=== PATIENT | male | born 1965 | race African-American/Black ===

== ENCOUNTER 2017-06-02 11:18 | Inpatient (IN) | payer OTHER ==
[2017-06-02 13:36] VITALS: BMI 37.8
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
[2017-06-02] MEDS ORDERED: MENTHOL/PHENOL 1 EACH UD MM PRN (15:55)
[2017-06-02] MEDS ORDERED: MAG HYDROX/AL HYDROX/SIMETH 30 ML UNIT-DOSE CUP PO PRN (15:55)
[2017-06-02] MEDS ORDERED: MAGNESIUM HYDROX 2400MG/30ML ORAL SUSPENSION 30 ML CUP PO PRN (15:55)
[2017-06-02] MEDS ORDERED: LOPERAMIDE HCL 2 MG CAPSULE PO PRN (15:55)
[2017-06-02] MEDS ORDERED: P-EPHED 60MG/TRIPROLIDI 2.5MG TABLET PO PRN (15:55)
[2017-06-02] MEDS ORDERED: IBUPROFEN 400 MG TABLET (FP) PO PRN (15:55)
[2017-06-02] MEDS ORDERED: MAGNESIUM CITRATE 300 ML BOTTLE PO PRN (15:55)
[2017-06-02] MEDS ORDERED: guaiFENesin/D-METHORPHAN HB 10 ML UNIT-DOSE CUPS PO PRN (15:55)
[2017-06-02] MEDS ORDERED: NICOTINE POLACRILEX 2 MG GUM BUC PRN (15:55)
[2017-06-02] MEDS ORDERED: hydrOXYzine PAMOATE 50 MG CAPSULE (FP) PO PRN (15:55)
[2017-06-02] MEDS ORDERED: METHADONE HCL 10 MG TABLET (FOR DETOX USE ONLY) PO ONE ×2 (17:30→23:00)
[2017-06-02] MEDS: diazePAM 5 MG TABLET PO PRN ×2 (18:01→22:16)
[2017-06-02] MEDS: NICOTINE 21 MG/24 HOURS TOPICAL PATCH TD SCH (18:03)
[2017-06-02] MEDS: ALBUTEROL SO4 6.7 GM HFA INHALER IH PRN (20:32)
[2017-06-02] MEDS ORDERED: ALBUTEROL SO4 6.7 GM HFA INHALER IH ONE (20:32)
[2017-06-02 21:54] LABS: URINE APPEARANCE CLEAR; URINE BILIRUBIN NEGATIVE (NEGATIVE); URINE BLOOD NEGATIVE (NEGATIVE); URINE COLOR DKYELLOW; URINE GLUCOSE (UA) NEGATIVE (NEGATIVE); URINE KETONE NEGATIVE (NEGATIVE); URINE LEUK ESTERASE NEGATIVE (NEGATIVE); URINE NITRITE NEGATIVE (NEGATIVE); URINE PROTEIN NEGATIVE (NEGATIVE); URINE UROBILINOGEN NEGATIVE mg/dL (0.2-1.0)
[2017-06-02] MEDS ORDERED: diphenhydrAMINE HCL 50 MG CAPSULE PO PRN (22:00)
[2017-06-02] MEDS: cloNIDine HCL 0.1 MG TABLET PO SCH (22:15)
[2017-06-02] MEDS: THIAMINE HCL 100 MG TABLET (FP) PO SCH (22:15)
[2017-06-03] MEDS: ALBUTEROL SO4 6.7 GM HFA INHALER IH PRN ×2 (02:35→22:39)
[2017-06-03] MEDS: NAPROXEN 500 MG TABLET (FP) PO PRN (05:27)
[2017-06-03] MEDS: diazePAM 5 MG TABLET PO PRN ×2 (05:27→22:37)
[2017-06-03] MEDS ORDERED: METHADONE HCL 10 MG TABLET (FOR DETOX USE ONLY) PO ONE (10:00)
[2017-06-03] MEDS: PRENATAL VITAMINS W/ FOLIC ACID TABLET (FP) PO SCH (10:35)
[2017-06-03] MEDS: HYDROCHLOROTHIAZIDE 12.5 MG CAPSULE (FP) PO SCH (10:35)
[2017-06-03] MEDS: amLODIPine BESYLATE 5 MG TABLET (FP) PO SCH (10:35)
[2017-06-03] MEDS: cloNIDine HCL 0.1 MG TABLET PO SCH ×2 (10:35→22:37)
[2017-06-03] MEDS: NICOTINE 21 MG/24 HOURS TOPICAL PATCH TD SCH (10:40)
[2017-06-03 10:44] LABS: MCH 30.2 pg (25.7-33.7); MCHC 33.4 g/dl (32.0-35.9); MEAN CELL VOLUME 90.3 fl (80-96); MEAN PLT VOLUME 9.6 fl (7.5-11.1); PLATELET COUNT 165 K/MM3 (134-434); RDW 14.7 % (11.9-15.9); WHITE BLOOD COUNT 6.4 K/mm3 (4.0-10.0)
[2017-06-03 10:45] LABS: ALBUMIN 3.1 g/dl (3.4-5.0); ANION GAP 3 (8-16); CALCIUM 8.4 mg/dL (8.5-10.1); CO2 36 mmol/L (21-32); GLUCOSE,RANDOM 93 mg/dL (74-106); SGPT/ALT 55 U/L (12-78)
[2017-06-03 10:47] LABS: ALK PHOS 82 U/L (45-117); BILIRUBIN,TOTAL 0.6 mg/dL (0.2-1.0); CREATININE 0.7 mg/dL (0.7-1.3); SGOT/AST 49 U/L (15-37); TOT PROT 6.3 g/dl (6.4-8.2)
--- NOTE | 2017-06-03 16:06 | PN ---
S CIWA - CIWA Score Nausea/Vomitin Muscle Tremors: 3 Anxiety: 4-Mod. Anxious/Guarded Agitation: 2 Paroxysmal Sweats: 1-Minimal Palms Moist Orientation: 0-Oriented Tacttile Disturbances: 0-None Auditory Disturbances: 0-None Visual Disturbances: 3-Moderate Sensitivity Headache: 4-Moderately Severe CIWA-Ar Total Score: 19 BHS COWS - Scale Resting Pulse: 0= [place] 80 or Below Sweatin= Chills/Flushing Restless Observation: 1= Difficult to Sit Still Pupil Size: 0= Normal to Room Light Bone or Joint Aches: 2= Severe Diffuse Aches Runny Nose/ Eye Tearin= Runny Nose/Eyes GI Upset > 30mins: 1= Stomach Cramp Tremor Observation of Outstretched Hands: 2= Slight Tremor Visible Yawning Observation: 1= 1-2x During Session Anxiety or Irritability: 2=Irritable/Anxious Goose Flesh Skin: 3=Piloerection COWS Score: 15 S Progress Note (SOAP) Subjective: Stomach Cramping, Tremors, H/A, Interrupted Sleep, Body Aches. Objective: PT. A & O X 3. NO ACUTE DISTRESS. 06/03/17 16:05 Vital Signs Temperature 97.8 F 06/03/17 13:47 Pulse Rate 74 06/03/17 13:47 Respiratory Rate 20 06/03/17 13:47 Blood Pressure 113/79 06/03/17 13:47 O2 Sat by Pulse Oximetry (%) Laboratory Tests 06/02/17 06/03/17 06/03/17 21:00 08:00 08:00 WBC 6.4 RBC 4.56 Hgb 13.8 Hct 41.2 MCV 90.3 MCH 30.2 MCHC 33.4 RDW 14.7 Plt Count 165 MPV 9.6 Sodium 140 Potassium 4.0 Chloride 101 Carbon Dioxide 36 H Anion Gap 3 L BUN 10 Creatinine 0.7 Creat Clearance w eGFR > 60 Random Glucose 93 Calcium 8.4 L Total Bilirubin 0.6 AST 49 H ALT 55 Alkaline Phosphatase 82 Total Protein 6.3 L Albumin 3.1 L Urine Color Dkyellow Urine Appearance Clear Urine pH 6.0 Ur Specific [place] 1.020 Urine Protein Negative Urine Glucose (UA) Negative Urine Ketones Negative Urine Blood Negative Urine Nitrite Negative Urine Bilirubin Negative Urine Urobilinogen Negative Ur Leukocyte Esterase Negative RPR Titer 06/03/17 08:00 WBC RBC Hgb Hct MCV MCH MCHC RDW Plt Count MPV Sodium Potassium Chloride Carbon Dioxide Anion Gap BUN Creatinine Creat Clearance w eGFR Random Glucose Calcium Total Bilirubin AST ALT Alkaline Phosphatase Total Protein Albumin Urine Color Urine Appearance Urine pH Ur Specific [place] Urine Protein Urine Glucose (UA) Urine Ketones Urine Blood Urine Nitrite Urine Bilirubin Urine Urobilinogen Ur Leukocyte Esterase RPR Titer Nonreactive labs noted. Assessment: 06/03/17 16:05 WITHDRAWAL SYMPTOMS. Plan: CONTINUE DETOX.
[2017-06-03] MEDS: THIAMINE HCL 100 MG TABLET (FP) PO SCH (22:37)
[2017-06-03] MEDS: CYCLOBENZAPRINE HCL 10 MG TABLET (FP) PO PRN (22:37)
[2017-06-04] MEDS: ALBUTEROL SO4 6.7 GM HFA INHALER IH PRN (05:29)
[2017-06-04] MEDS: diazePAM 5 MG TABLET PO PRN ×2 (05:29→22:23)
[2017-06-04] MEDS: NAPROXEN 500 MG TABLET (FP) PO PRN ×2 (05:31→22:22)
[2017-06-04] MEDS ORDERED: METHADONE HCL 5 MG TABLET (FOR DETOX USE ONLY) PO ONE (10:00)
[2017-06-04] MEDS: PRENATAL VITAMINS W/ FOLIC ACID TABLET (FP) PO SCH (10:58)
[2017-06-04] MEDS: amLODIPine BESYLATE 5 MG TABLET (FP) PO SCH (10:59)
[2017-06-04] MEDS: cloNIDine HCL 0.1 MG TABLET PO SCH ×2 (10:59→22:22)
[2017-06-04] MEDS: HYDROCHLOROTHIAZIDE 12.5 MG CAPSULE (FP) PO SCH (10:59)
[2017-06-04] MEDS: NICOTINE 21 MG/24 HOURS TOPICAL PATCH TD SCH (11:00)
[2017-06-04] MEDS: CYCLOBENZAPRINE HCL 10 MG TABLET (FP) PO PRN ×2 (13:49→22:22)
--- NOTE | 2017-06-04 14:49 | PN ---
BHS COWS - Scale Resting Pulse: 0= [place] 80 or Below Sweatin= Chills/Flushing Restless Observation: 3= Extraneous Movement Pupil Size: 1= Pupils >than Normal Bone or Joint Aches: 2= Severe Diffuse Aches Runny Nose/ Eye Tearin= Runny Nose/Eyes GI Upset > 30mins: 1= Stomach Cramp Tremor Observation of Outstretched Hands: 2= Slight Tremor Visible Yawning Observation: 1= 1-2x During Session Anxiety or Irritability: 2=Irritable/Anxious Goose Flesh Skin: 0=Smooth Skin COWS Score: 15 S Progress Note (SOAP) Subjective: Sweating, anxious, chills, interrupted sleep Objective: 06/04/17 14:47 Last Vital Signs Temp Pulse Resp BP Pulse Ox 97.2 F L 67 18 106/75 06/04/17 13:45 06/04/17 13:45 06/04/17 13:45 06/04/17 13:45 Laboratory Tests 06/02/17 06/03/17 06/03/17 21:00 08:00 08:00 WBC 6.4 RBC 4.56 Hgb 13.8 Hct 41.2 MCV 90.3 MCH 30.2 MCHC 33.4 RDW 14.7 Plt Count 165 MPV 9.6 Sodium 140 Potassium 4.0 Chloride 101 Carbon Dioxide 36 H Anion Gap 3 L BUN 10 Creatinine 0.7 Creat Clearance w eGFR > 60 Random Glucose 93 Calcium 8.4 L Total Bilirubin 0.6 AST 49 H ALT 55 Alkaline Phosphatase 82 Total Protein 6.3 L Albumin 3.1 L Urine Color Dkyellow Urine Appearance Clear Urine pH 6.0 Ur Specific [place] 1.020 Urine Protein Negative Urine Glucose (UA) Negative Urine Ketones Negative Urine Blood Negative Urine Nitrite Negative Urine Bilirubin Negative Urine Urobilinogen Negative Ur Leukocyte Esterase Negative RPR Titer 06/03/17 08:00 WBC RBC Hgb Hct MCV MCH MCHC RDW Plt Count MPV Sodium Potassium Chloride Carbon Dioxide Anion Gap BUN Creatinine Creat Clearance w eGFR Random Glucose Calcium Total Bilirubin AST ALT Alkaline Phosphatase Total Protein Albumin Urine Color Urine Appearance Urine pH Ur Specific [place] Urine Protein Urine Glucose (UA) Urine Ketones Urine Blood Urine Nitrite Urine Bilirubin Urine Urobilinogen Ur Leukocyte Esterase RPR Titer Nonreactive Labs noted Assessment: 06/04/17 14:48 Withdrawal symptoms Plan: Continue detox Encouraged to drink lots of water
[2017-06-04] MEDS: THIAMINE HCL 100 MG TABLET (FP) PO SCH (22:20)
[2017-06-05] MEDS: ALBUTEROL SO4 6.7 GM HFA INHALER IH PRN (05:35)
[2017-06-05] MEDS: diazePAM 5 MG TABLET PO PRN ×2 (05:35→10:44)
[2017-06-05] MEDS ORDERED: METHADONE HCL 5 MG TABLET (FOR DETOX USE ONLY) PO ONE (10:00)
--- NOTE | 2017-06-05 10:00 | EKG ---
Test Reason : Blood Pressure : / mmHG Vent. Rate : 072 BPM Atrial Rate : 072 BPM P-R Int : 140 ms QRS Dur : 078 ms QT Int : 396 ms P-R-T Axes : 071 069 054 degrees QTc Int : 433 ms NORMAL SINUS RHYTHM NORMAL ECG NO PREVIOUS ECGS AVAILABLE Confirmed by FREDDIE MARQUEZ MD ([id number]) on 06/05/2017 9:59:37 AM Referred By: Confirmed By:FREDDIE MARQUEZ MD
[2017-06-05] MEDS: cloNIDine HCL 0.1 MG TABLET PO SCH ×2 (10:40→22:16)
[2017-06-05] MEDS: PRENATAL VITAMINS W/ FOLIC ACID TABLET (FP) PO SCH (10:40)
[2017-06-05] MEDS: HYDROCHLOROTHIAZIDE 12.5 MG CAPSULE (FP) PO SCH (10:44)
[2017-06-05] MEDS: NICOTINE 21 MG/24 HOURS TOPICAL PATCH TD SCH (10:44)
[2017-06-05] MEDS: amLODIPine BESYLATE 5 MG TABLET (FP) PO SCH (10:44)
--- NOTE | 2017-06-05 14:33 | PN ---
BHS Progress Note (SOAP) Subjective: Sweating,interrupted sleep,restless. Objective: 06/05/17 14:32 Vital Signs - 8 hr 06/05/17 06/05/17 09:25 13:24 Temperature 97.0 F L 97.1 F L Pulse Rate 82 69 Respiratory 20 18 Rate Blood Pressure 115/75 104/77 Laboratory Last Values WBC 6.4 K/mm3 (4.0-10.0) 06/03/17 08:00 RBC 4.56 M/mm3 (4.00-5.60) 06/03/17 08:00 Hgb 13.8 GM/dL (11.7-16.9) 06/03/17 08:00 Hct 41.2 % (35.4-49) 06/03/17 08:00 MCV 90.3 fl (80-96) 06/03/17 08:00 MCH 30.2 pg (25.7-33.7) 06/03/17 08:00 MCHC 33.4 g/dl (32.0-35.9) 06/03/17 08:00 RDW 14.7 % (11.9-15.9) 06/03/17 08:00 Plt Count 165 K/MM3 (134-434) 06/03/17 08:00 MPV 9.6 fl (7.5-11.1) 06/03/17 08:00 Sodium 140 mmol/L (136-145) 06/03/17 08:00 Potassium 4.0 mmol/L (3.5-5.1) 06/03/17 08:00 Chloride 101 mmol/L (98-107) 06/03/17 08:00 Carbon Dioxide 36 mmol/L (21-32) H 06/03/17 08:00 Anion Gap 3 (8-16) L 06/03/17 08:00 BUN 10 mg/dL (7-18) 06/03/17 08:00 Creatinine 0.7 mg/dL (0.7-1.3) 06/03/17 08:00 Creat Clearance w eGFR > 60 (>60) 06/03/17 08:00 Random Glucose 93 mg/dL (74-106) 06/03/17 08:00 Calcium 8.4 mg/dL (8.5-10.1) L 06/03/17 08:00 Total Bilirubin 0.6 mg/dL (0.2-1.0) 06/03/17 08:00 AST 49 U/L (15-37) H 06/03/17 08:00 ALT 55 U/L (12-78) 06/03/17 08:00 Alkaline Phosphatase 82 U/L (45-117) 06/03/17 08:00 Total Protein 6.3 g/dl (6.4-8.2) L 06/03/17 08:00 Albumin 3.1 g/dl (3.4-5.0) L 06/03/17 08:00 Urine Color Dkyellow 06/02/17 21:00 Urine Appearance Clear 06/02/17 21:00 Urine pH 6.0 (5.0-8.0) 06/02/17 21:00 Ur Specific [place] 1.020 (1.005-1.025) 06/02/17 21:00 Urine Protein Negative (NEGATIVE) 06/02/17 21:00 Urine Glucose (UA) Negative (NEGATIVE) 06/02/17 21:00 Urine Ketones Negative (NEGATIVE) 06/02/17 21:00 Urine Blood Negative (NEGATIVE) 06/02/17 21:00 Urine Nitrite Negative (NEGATIVE) 06/02/17 21:00 Urine Bilirubin Negative (NEGATIVE) 06/02/17 21:00 Urine Urobilinogen Negative mg/dL (0.2-1.0) 06/02/17 21:00 Ur Leukocyte Esterase Negative (NEGATIVE) 06/02/17 21:00 RPR Titer Nonreactive (NONREACTIVE) 06/03/17 08:00 labs noted Assessment: 06/05/17 14:33 Withdrawal sx. Plan: Continue detox
[2017-06-05] MEDS: ACETAMINOPHEN 325 MG TABLET (FP) PO PRN (22:16)
[2017-06-05] MEDS: THIAMINE HCL 100 MG TABLET (FP) PO SCH (22:16)
[2017-06-06] MEDS: ALBUTEROL SO4 6.7 GM HFA INHALER IH PRN ×2 (05:53→09:44)
[2017-06-06] MEDS: amLODIPine BESYLATE 5 MG TABLET (FP) PO SCH (09:44)
[2017-06-06] MEDS: HYDROCHLOROTHIAZIDE 12.5 MG CAPSULE (FP) PO SCH (09:44)
[2017-06-06] MEDS: cloNIDine HCL 0.1 MG TABLET PO SCH (09:44)
[2017-06-06] MEDS: NICOTINE 21 MG/24 HOURS TOPICAL PATCH TD SCH (09:44)
[2017-06-06] MEDS: PRENATAL VITAMINS W/ FOLIC ACID TABLET (FP) PO SCH (09:44)
[2017-06-06 10:00] VITALS: BP 134/80; PULSE 79; TEMP 98.1
[2017-06-06] MEDS ORDERED: METHADONE HCL 10 MG TABLET (FOR DETOX USE ONLY) PO ONE (10:00)
[2017-06-06] MEDS ORDERED: METHADONE HCL 5 MG TABLET (FOR DETOX USE ONLY) PO ONE (10:00)
--- NOTE | 2017-06-06 10:57 | DS ---
[facility] Detox Discharge Summary Admission Date: 06/02/17 Discharge Date: 06/06/17 - History Present History: Opioid Dependence Pertinent Past History: HTN Hep c Asthma - Physical Exam Results Vital Signs: Vital Signs Temperature 98.1 F 06/06/17 09:59 Pulse Rate 79 06/06/17 09:59 Respiratory Rate 18 06/06/17 09:59 Blood Pressure 134/80 06/06/17 09:59 O2 Sat by Pulse Oximetry (%) Pertinent Admission Physical Exam Findings: Withdrawal sx. Laboratory Last Values WBC 6.4 K/mm3 (4.0-10.0) 06/03/17 08:00 RBC 4.56 M/mm3 (4.00-5.60) 06/03/17 08:00 Hgb 13.8 GM/dL (11.7-16.9) 06/03/17 08:00 Hct 41.2 % (35.4-49) 06/03/17 08:00 MCV 90.3 fl (80-96) 06/03/17 08:00 MCH 30.2 pg (25.7-33.7) 06/03/17 08:00 MCHC 33.4 g/dl (32.0-35.9) 06/03/17 08:00 RDW 14.7 % (11.9-15.9) 06/03/17 08:00 Plt Count 165 K/MM3 (134-434) 06/03/17 08:00 MPV 9.6 fl (7.5-11.1) 06/03/17 08:00 Sodium 140 mmol/L (136-145) 06/03/17 08:00 Potassium 4.0 mmol/L (3.5-5.1) 06/03/17 08:00 Chloride 101 mmol/L (98-107) 06/03/17 08:00 Carbon Dioxide 36 mmol/L (21-32) H 06/03/17 08:00 Anion Gap 3 (8-16) L 06/03/17 08:00 BUN 10 mg/dL (7-18) 06/03/17 08:00 Creatinine 0.7 mg/dL (0.7-1.3) 06/03/17 08:00 Creat Clearance w eGFR > 60 (>60) 06/03/17 08:00 Random Glucose 93 mg/dL (74-106) 06/03/17 08:00 Calcium 8.4 mg/dL (8.5-10.1) L 06/03/17 08:00 Total Bilirubin 0.6 mg/dL (0.2-1.0) 06/03/17 08:00 AST 49 U/L (15-37) H 06/03/17 08:00 ALT 55 U/L (12-78) 06/03/17 08:00 Alkaline Phosphatase 82 U/L (45-117) 06/03/17 08:00 Total Protein 6.3 g/dl (6.4-8.2) L 06/03/17 08:00 Albumin 3.1 g/dl (3.4-5.0) L 06/03/17 08:00 Urine Color Dkyellow 06/02/17 21:00 Urine Appearance Clear 06/02/17 21:00 Urine pH 6.0 (5.0-8.0) 06/02/17 21:00 Ur Specific [place] 1.020 (1.005-1.025) 06/02/17 21:00 Urine Protein Negative (NEGATIVE) 06/02/17 21:00 Urine Glucose (UA) Negative (NEGATIVE) 06/02/17 21:00 Urine Ketones Negative (NEGATIVE) 06/02/17 21:00 Urine Blood Negative (NEGATIVE) 06/02/17 21:00 Urine Nitrite Negative (NEGATIVE) 06/02/17 21:00 Urine Bilirubin Negative (NEGATIVE) 06/02/17 21:00 Urine Urobilinogen Negative mg/dL (0.2-1.0) 06/02/17 21:00 Ur Leukocyte Esterase Negative (NEGATIVE) 06/02/17 21:00 RPR Titer Nonreactive (NONREACTIVE) 06/03/17 08:00 labs noted - Treatment Hospital Course: Detox Protocol Followed, Detoxed Safely, Responded well, Discharged Condition Good, Rehab Referral Accepted Patient has Accepted a Rehab Referral to: [facility] - Medication Discharge Medications: Ambulatory Orders Albuterol Sulfate Inhaler - [Ventolin Hfa Inhaler -] 2 inh PO Q4H PRN 06/02/17 Amlodipine Besylate [Norvasc -] 5 mg PO DAILY 06/02/17 Benzonatate [Tessalon Pearls -] 100 mg PO TID 06/02/17 Hydrochlorothiazide [Hctz -] 12.5 mg PO DAILY 06/02/17 Naproxen [Naprosyn -] 500 mg PO BID 06/02/17 Prednisone [Deltasone -] 40 mg PO DAILY 06/02/17 - Diagnosis (1) Asthma Current Visit: Yes Status: Acute Qualifiers: Asthma severity: mild intermittent Asthma complication type: uncomplicated Qualified Code(s): J45.20 - Mild intermittent asthma, uncomplicated (2) Essential hypertension Current Visit: Yes Status: Acute (3) Hepatitis C Current Visit: Yes Status: Acute Qualifiers: Viral hepatitis chronicity: unspecified Hepatic coma status: without hepatic coma Qualified Code(s): B19.20 - Unspecified viral hepatitis C without hepatic coma (4) Nicotine dependence Current Visit: Yes Status: Acute Qualifiers: Nicotine product type: cigarettes Substance use status: uncomplicated Qualified Code(s): F17.210 - Nicotine dependence, cigarettes, uncomplicated (5) Opioid dependence with withdrawal Current Visit: Yes Status: Acute - AMA Did Patient Leave Against Medical Advice: No
[2017-06-06] MEDS: ACETAMINOPHEN 325 MG TABLET (FP) PO PRN (11:35)
[2017-06-07] MEDS ORDERED: METHADONE HCL 5 MG TABLET (FOR DETOX USE ONLY) PO ONE (06:00)
== END 2017-06-06 12:23 | disposition other institution (70) | DRG 773 ==
LOC: YASAS 11:18 → Y3N 16:30
PROVIDERS: ADMIT Internal Medicine; ATTEND Internal Medicine
PROC: HZ2ZZZZ Detoxification Services for Substance Abuse Treatment (ICD-10-PCS; principal; 2017-06-06)
DX: F11.23 Opioid dependence with withdrawal (principal); F17.210 Nicotine dependence, cigarettes, uncomplicated; I10 Essential (primary) hypertension; B18.2 Chronic viral hepatitis C; J45.20 Mild intermittent asthma, uncomplicated; M54.5 Low back pain; M12.9 Arthropathy, unspecified
CPT/HCPCS: 36415; 80053; 81003; 85027; 86593; 93005; 93010

== ENCOUNTER 2017-06-06 12:46 | Inpatient (IN) | payer OTHER ==
[2017-06-06] MEDS ORDERED: MAGNESIUM HYDROX 2400MG/30ML ORAL SUSPENSION 30 ML CUP PO PRN (13:06)
[2017-06-06] MEDS ORDERED: MAG HYDROX/AL HYDROX/SIMETH 30 ML UNIT-DOSE CUP PO PRN (13:06)
[2017-06-06] MEDS ORDERED: LOPERAMIDE HCL 2 MG CAPSULE PO PRN (13:06)
[2017-06-06] MEDS ORDERED: hydrOXYzine PAMOATE 50 MG CAPSULE (FP) PO PRN (13:06)
[2017-06-06] MEDS ORDERED: guaiFENesin/D-METHORPHAN HB 10 ML UNIT-DOSE CUPS PO PRN (13:06)
[2017-06-06] MEDS ORDERED: IBUPROFEN 400 MG TABLET (FP) PO PRN (13:06)
[2017-06-06] MEDS ORDERED: P-EPHED 60MG/TRIPROLIDI 2.5MG TABLET PO PRN (13:06)
[2017-06-06] MEDS ORDERED: MENTHOL/PHENOL 1 EACH UD MM PRN (13:06)
[2017-06-06] MEDS ORDERED: ACETAMINOPHEN 325 MG TABLET (FP) PO PRN (13:06)
[2017-06-06] MEDS ORDERED: MAGNESIUM CITRATE 300 ML BOTTLE PO PRN (13:06)
[2017-06-06] MEDS: FLUTICASONE PROP 0.05% 16 GM NASAL SPRAY NS SCH ×2 (14:29→22:00)
[2017-06-06] MEDS: NAPROXEN 500 MG TABLET (FP) PO SCH (22:01)
[2017-06-06] MEDS: THIAMINE HCL 100 MG TABLET (FP) PO SCH (22:01)
[2017-06-06] MEDS: ALBUTEROL SO4 6.7 GM HFA INHALER IH PRN (22:02)
[2017-06-07] MEDS: ALBUTEROL SO4 6.7 GM HFA INHALER IH PRN ×2 (07:20→21:56)
[2017-06-07] MEDS: PRENATAL VITAMINS W/ FOLIC ACID TABLET (FP) PO SCH (10:22)
[2017-06-07] MEDS: amLODIPine BESYLATE 5 MG TABLET (FP) PO SCH (10:22)
[2017-06-07] MEDS: HYDROCHLOROTHIAZIDE 12.5 MG CAPSULE (FP) PO SCH (10:22)
[2017-06-07] MEDS: NAPROXEN 500 MG TABLET (FP) PO SCH ×2 (10:23→21:56)
[2017-06-07] MEDS: FLUTICASONE PROP 0.05% 16 GM NASAL SPRAY NS SCH ×2 (10:23→21:56)
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
[2017-06-07] MEDS: NICOTINE 14 MG/24 HOURS TOPICAL PATCH TD SCH (12:07)
[2017-06-07] MEDS: THIAMINE HCL 100 MG TABLET (FP) PO SCH (21:55)
[2017-06-07] MEDS: diphenhydrAMINE HCL 50 MG CAPSULE PO PRN (21:55)
[2017-06-08] MEDS: PRENATAL VITAMINS W/ FOLIC ACID TABLET (FP) PO SCH (10:31)
[2017-06-08] MEDS: amLODIPine BESYLATE 5 MG TABLET (FP) PO SCH (10:31)
[2017-06-08] MEDS: HYDROCHLOROTHIAZIDE 12.5 MG CAPSULE (FP) PO SCH (10:31)
[2017-06-08] MEDS: NAPROXEN 500 MG TABLET (FP) PO SCH ×2 (10:31→21:52)
[2017-06-08] MEDS: NICOTINE 14 MG/24 HOURS TOPICAL PATCH TD SCH (10:32)
[2017-06-08] MEDS: FLUTICASONE PROP 0.05% 16 GM NASAL SPRAY NS SCH ×2 (10:32→21:52)
[2017-06-08] MEDS: THIAMINE HCL 100 MG TABLET (FP) PO SCH (21:52)
[2017-06-08] MEDS: ALBUTEROL SO4 6.7 GM HFA INHALER IH PRN (21:54)
[2017-06-09] MEDS: HYDROCHLOROTHIAZIDE 12.5 MG CAPSULE (FP) PO SCH (10:12)
[2017-06-09] MEDS: amLODIPine BESYLATE 5 MG TABLET (FP) PO SCH (10:13)
[2017-06-09] MEDS: NICOTINE 14 MG/24 HOURS TOPICAL PATCH TD SCH (10:13)
[2017-06-09] MEDS: FLUTICASONE PROP 0.05% 16 GM NASAL SPRAY NS SCH ×2 (10:13→22:02)
[2017-06-09] MEDS: PRENATAL VITAMINS W/ FOLIC ACID TABLET (FP) PO SCH (10:13)
[2017-06-09] MEDS: NAPROXEN 500 MG TABLET (FP) PO SCH ×2 (10:13→22:01)
[2017-06-09] MEDS ORDERED: MAGNESIUM CITRATE 300 ML BOTTLE PO PRN (13:05)
[2017-06-09] MEDS: THIAMINE HCL 100 MG TABLET (FP) PO SCH (22:01)
[2017-06-09] MEDS: ALBUTEROL SO4 6.7 GM HFA INHALER IH PRN (22:03)
[2017-06-10] MEDS: NAPROXEN 500 MG TABLET (FP) PO SCH ×2 (10:24→22:28)
[2017-06-10] MEDS: FLUTICASONE PROP 0.05% 16 GM NASAL SPRAY NS SCH ×2 (10:24→22:30)
[2017-06-10] MEDS: HYDROCHLOROTHIAZIDE 12.5 MG CAPSULE (FP) PO SCH (10:24)
[2017-06-10] MEDS: amLODIPine BESYLATE 5 MG TABLET (FP) PO SCH (10:24)
[2017-06-10] MEDS: PRENATAL VITAMINS W/ FOLIC ACID TABLET (FP) PO SCH (10:24)
[2017-06-10] MEDS: NICOTINE 14 MG/24 HOURS TOPICAL PATCH TD SCH (10:25)
[2017-06-10] MEDS: ALBUTEROL SO4 6.7 GM HFA INHALER IH PRN (10:27)
[2017-06-10] MEDS: THIAMINE HCL 100 MG TABLET (FP) PO SCH (22:31)
[2017-06-11] MEDS: diphenhydrAMINE HCL 50 MG CAPSULE PO PRN (01:33)
[2017-06-11] MEDS: FLUTICASONE PROP 0.05% 16 GM NASAL SPRAY NS SCH ×2 (10:45→21:56)
[2017-06-11] MEDS: amLODIPine BESYLATE 5 MG TABLET (FP) PO SCH (10:46)
[2017-06-11] MEDS: PRENATAL VITAMINS W/ FOLIC ACID TABLET (FP) PO SCH (10:46)
[2017-06-11] MEDS: HYDROCHLOROTHIAZIDE 12.5 MG CAPSULE (FP) PO SCH (10:46)
[2017-06-11] MEDS: NICOTINE 14 MG/24 HOURS TOPICAL PATCH TD SCH (10:47)
[2017-06-11] MEDS: NAPROXEN 500 MG TABLET (FP) PO SCH ×2 (10:47→21:56)
[2017-06-11] MEDS: ALBUTEROL SO4 6.7 GM HFA INHALER IH PRN (10:47)
[2017-06-11] MEDS: THIAMINE HCL 100 MG TABLET (FP) PO SCH (21:56)
[2017-06-12] MEDS: ALBUTEROL SO4 6.7 GM HFA INHALER IH PRN ×3 (05:00→21:40)
[2017-06-12] MEDS: amLODIPine BESYLATE 5 MG TABLET (FP) PO SCH (10:36)
[2017-06-12] MEDS: PRENATAL VITAMINS W/ FOLIC ACID TABLET (FP) PO SCH (10:36)
[2017-06-12] MEDS: HYDROCHLOROTHIAZIDE 12.5 MG CAPSULE (FP) PO SCH (10:36)
[2017-06-12] MEDS: NICOTINE 14 MG/24 HOURS TOPICAL PATCH TD SCH (10:36)
[2017-06-12] MEDS: FLUTICASONE PROP 0.05% 16 GM NASAL SPRAY NS SCH ×2 (10:36→21:40)
[2017-06-12] MEDS: NAPROXEN 500 MG TABLET (FP) PO SCH ×2 (10:36→21:39)
[2017-06-12] MEDS ORDERED: LIDOCAINE VISCOUS 2% ORAL/TOP 20 ML UNIT-DOSE CUP MM PRN (18:26)
[2017-06-12] MEDS: THIAMINE HCL 100 MG TABLET (FP) PO SCH (21:39)
[2017-06-13 07:05] VITALS: BP 140/84; PULSE 81; TEMP 98.3
[2017-06-13] MEDS: NAPROXEN 500 MG TABLET (FP) PO SCH (10:36)
[2017-06-13] MEDS: NICOTINE 14 MG/24 HOURS TOPICAL PATCH TD SCH (10:36)
[2017-06-13] MEDS: amLODIPine BESYLATE 5 MG TABLET (FP) PO SCH (10:37)
[2017-06-13] MEDS: PRENATAL VITAMINS W/ FOLIC ACID TABLET (FP) PO SCH (10:37)
[2017-06-13] MEDS: HYDROCHLOROTHIAZIDE 12.5 MG CAPSULE (FP) PO SCH (10:37)
[2017-06-13] MEDS: ALBUTEROL SO4 6.7 GM HFA INHALER IH PRN (10:39)
[2017-06-13] MEDS: FLUTICASONE PROP 0.05% 16 GM NASAL SPRAY NS SCH (10:39)
--- NOTE | 2017-06-13 11:21 | PN ---
Psychiatric Progress Note Vital Signs: Vital Signs Period Temp Pulse Resp BP Sys/[place] Pulse Ox Last 24 Hr 98.3 F 81 18-18 140/84 Date of Session: 06/13/17 Chief Complaint:: discharge visit ROS: Asthma, HTN, Hep C, athritis medically managed. Current Medications: Active Medications Generic Name Dose Route Start Last Admin Trade Name Freq PRN Reason Stop Dose Admin Acetaminophen 650 mg 06/06/17 13:06 06/12/17 18:22 Tylenol - PO 650 mg Q4H PRN Administration FEVER OR PAIN Al Hydroxide/Mg Hydroxide 30 ml 06/06/17 13:06 Mylanta Oral Suspension - PO Q6H PRN DYSPEPSIA Albuterol Sulfate 2 puff 06/06/17 13:09 06/13/17 10:39 Ventolin Hfa Inhaler - IH 2 puff Q4H PRN Administration ASTHMA Amlodipine Besylate 5 mg 06/07/17 10:00 06/13/17 10:37 Norvasc - PO 5 mg DAILY HUMA Administration Diphenhydramine HCl 50 mg 06/06/17 13:06 06/11/17 01:33 Benadryl - PO 50 mg HSMR1 PRN Administration FOR ITCHING Eucalyptus/Menthol/Phenol/Sorbitol 1 each 06/06/17 13:06 Cepastat Lozenge - MM Q4H PRN SORE THROAT Fluticasone Propionate 1 spray 06/06/17 14:01 06/13/17 10:39 Flonase - NS 1 spr BID HUMA Administration Guaifenesin 10 ml 06/06/17 13:06 Robitussin Dm - PO Q6H PRN COUGH Hydrochlorothiazide 12.5 mg 06/07/17 10:00 06/13/17 10:37 Hctz - PO 12.5 mg DAILY HUMA Administration Hydroxyzine Pamoate 50 mg 06/06/17 13:06 06/08/17 21:54 Vistaril - PO 50 mg Q4H PRN Administration AGITATION Lidocaine HCl 20 ml 06/12/17 18:26 06/12/17 21:41 Xylocaine 2% Viscous Oral - MM 20 ml TID PRN Administration ORAL PAIN/MOUTH SORES Loperamide HCl 4 mg 06/06/17 13:06 Imodium - PO Q6H PRN DIARRHEA Magnesium Hydroxide 30 ml 06/06/17 13:06 Milk Of Magnesia - PO DAILY PRN CONSTIPATION Naproxen 500 mg 06/06/17 22:00 06/13/17 10:36 Naprosyn - PO Not Given BID HUMA Nicotine 14 mg 06/07/17 11:30 06/13/17 10:36 Nicoderm Patch - TD 14 mg DAILY HUMA Administration Multivit/Folic Acid/Iron 1 tab 06/07/17 10:00 06/13/17 10:37 Vitamins ([facility]) - PO 1 tab DAILY HUMA Administration Pseudoephedrine/Triprolidine 1 combo 06/06/17 13:06 Actifed - PO TID PRN NASAL CONGESTION Thiamine HCl 100 mg 06/06/17 22:00 06/12/17 21:39 Vitamin B1 - PO 100 mg HS HUMA Administration Current Side Effect: No Lab tests ordered: No Lab tests reviewed: Yes Provider note:: Patient requested for earlier discharge today, he completed 8 days, will continue to address his issues at NA meetings, patient verbalized his resolution to continue maintain abstinence and attend NA meettings, he reports he is tired to use drugs, understands the negative outcome of his addiction, patient was encouraged to utlize all supports to prevent relapses, he is stable for discharge today. Total face to face time:: 35 Mental Status Exam - Mental Status Exam Alert and Oriented to: Time, Place, Person Cognitive Function: Good Patient Appearance: Well Groomed Mood: Hopeful Affect: Mood Congruent Patient Behavior: Appropriate, Cooperative Speech Pattern: Clear Voice Loudness: Normal Thought Process: Intact, Goal Oriented Thought Disorder: Not Present Hallucinations: Denies Suicidal Ideation: Denies Homicidal Ideation: Denies Insight/Judgement: Fair Sleep: Fair Appetite: Fair Muscle strength/Tone: Normal Gait/Station: Normal Psychiatric Treatment Plan - Problem List (1) Arthritis Current Visit: No (2) Asthma Current Visit: No Qualifiers: Asthma severity: mild intermittent Asthma complication type: uncomplicated Qualified Code(s): J45.20 - Mild intermittent asthma, uncomplicated (3) Hepatitis C Current Visit: No Qualifiers: Viral hepatitis chronicity: unspecified Hepatic coma status: without hepatic coma Qualified Code(s): B19.20 - Unspecified viral hepatitis C without hepatic coma (4) Hypertension Current Visit: No (5) Nicotine dependence Current Visit: No Qualifiers: Nicotine product type: cigarettes Substance use status: uncomplicated Qualified Code(s): F17.210 - Nicotine dependence, cigarettes, uncomplicated (6) Opioid dependence Current Visit: Yes
== END 2017-06-13 12:50 | disposition home or self-care (01) | DRG 772 ==
LOC: YASAS 12:46 → Y5N 12:48
PROVIDERS: ADMIT Psychiatry & Neurology Psychiatry; ATTEND Psychiatry & Neurology Psychiatry
PROC: HZ42ZZZ Group Counseling for Substance Abuse Treatment, Cognitive-Behavioral (ICD-10-PCS; principal; 2017-06-06)
DX: F11.20 Opioid dependence, uncomplicated (principal); F17.210 Nicotine dependence, cigarettes, uncomplicated; J45.20 Mild intermittent asthma, uncomplicated; I10 Essential (primary) hypertension; B19.20 Unspecified viral hepatitis C without hepatic coma; M19.90 Unspecified osteoarthritis, unspecified site

== ENCOUNTER 2017-12-01 11:26 | Inpatient (IN) | payer OTHER ==
[2017-12-01 12:12] VITALS: BMI 37.5
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
[2017-12-01] MEDS ORDERED: hydrOXYzine PAMOATE 50 MG CAPSULE (FP) PO PRN (17:51)
[2017-12-01] MEDS ORDERED: MAGNESIUM HYDROX 2400MG/30ML ORAL SUSPENSION 30 ML CUP PO PRN (17:51)
[2017-12-01] MEDS ORDERED: NICOTINE POLACRILEX 2 MG GUM BC PRN (17:51)
[2017-12-01] MEDS ORDERED: MENTHOL/PHENOL 1 EACH UD MM PRN (17:51)
[2017-12-01] MEDS ORDERED: ACETAMINOPHEN 325 MG TABLET (FP) PO PRN (17:51)
[2017-12-01] MEDS ORDERED: guaiFENesin/D-METHORPHAN HB 10 ML UNIT-DOSE CUPS PO PRN (17:51)
[2017-12-01] MEDS ORDERED: P-EPHED 60MG/TRIPROLIDI 2.5MG TABLET PO PRN (17:51)
[2017-12-01] MEDS ORDERED: MAG HYDROX/AL HYDROX/SIMETH 30 ML UNIT-DOSE CUP PO PRN (17:51)
[2017-12-01] MEDS ORDERED: IBUPROFEN 400 MG TABLET (FP) PO PRN (17:51)
[2017-12-01] MEDS ORDERED: LOPERAMIDE HCL 2 MG CAPSULE PO PRN (17:51)
[2017-12-01] MEDS ORDERED: MAGNESIUM CITRATE 300 ML BOTTLE PO PRN (17:51)
[2017-12-01] MEDS ORDERED: METHADONE HCL 10 MG TABLET (FOR DETOX USE ONLY) PO ONE ×2 (18:30→23:00)
[2017-12-01] MEDS: diazePAM 5 MG TABLET PO PRN (19:50)
[2017-12-01] MEDS: NICOTINE 14 MG/24 HOURS TOPICAL PATCH TD SCH (20:03)
[2017-12-01] MEDS: THIAMINE HCL 100 MG TABLET (FP) PO SCH (22:13)
[2017-12-01] MEDS: ALBUTEROL SO4 18 GM HFA INHALER IH PRN (22:15)
[2017-12-01 23:25] LABS: URINE APPEARANCE TURBID; URINE BILIRUBIN NEGATIVE (NEGATIVE); URINE BLOOD NEGATIVE (NEGATIVE); URINE COLOR AMBER; URINE GLUCOSE (UA) NEGATIVE (NEGATIVE); URINE KETONE NEGATIVE (NEGATIVE); URINE LEUK ESTERASE NEGATIVE (NEGATIVE); URINE NITRITE NEGATIVE (NEGATIVE); URINE PROTEIN NEGATIVE (NEGATIVE); URINE UROBILINOGEN 4.0 E.U/dl mg/dL (0.2-1.0)
[2017-12-02] MEDS: ALBUTEROL SO4 18 GM HFA INHALER IH PRN ×3 (02:11→22:23)
[2017-12-02] MEDS: diazePAM 5 MG TABLET PO PRN ×3 (05:37→22:24)
[2017-12-02 09:59] LABS: HEMOGLOBIN 13.9 GM/dL (11.7-16.9); MCH 29.6 pg (25.7-33.7); MCHC 32.3 g/dl (32.0-35.9); MEAN CELL VOLUME 91.6 fl (80-96); MEAN PLT VOLUME 10.7 fl (7.5-11.1); PLATELET COUNT 184 K/MM3 (134-434); RBC 4.69 M/mm3 (4.00-5.60); RDW 14.2 % (11.9-15.9); WHITE BLOOD COUNT 5.4 K/mm3 (4.0-10.0)
[2017-12-02] MEDS ORDERED: METHADONE HCL 10 MG TABLET (FOR DETOX USE ONLY) PO ONE (10:00)
[2017-12-02 10:15] LABS: CHLORIDE 103 mmol/L (98-107); POTASSIUM 4.1 mmol/L (3.5-5.1); SODIUM 140 mmol/L (136-145)
[2017-12-02 10:29] LABS: ALBUMIN 3.3 g/dl (3.4-5.0); ALK PHOS 98 U/L (45-117); ANION GAP 6 (8-16); BILIRUBIN,TOTAL 0.9 mg/dL (0.2-1.0); BLOOD UREA NITROGEN 11 mg/dL (7-18); CALCIUM 8.4 mg/dL (8.5-10.1); CO2 31 mmol/L (21-32); CREATININE 0.9 mg/dL (0.7-1.3); GLUCOSE,RANDOM 154 mg/dL (74-106); SGOT/AST 91 U/L (15-37); SGPT/ALT 90 U/L (12-78); TOT PROT 6.7 g/dl (6.4-8.2)
[2017-12-02] MEDS: amLODIPine BESYLATE 5 MG TABLET (FP) PO SCH (10:29)
[2017-12-02] MEDS: PRENATAL VITAMINS W/ FOLIC ACID TABLET (FP) PO SCH (10:29)
[2017-12-02] MEDS: NICOTINE 14 MG/24 HOURS TOPICAL PATCH TD SCH (10:30)
--- NOTE | 2017-12-02 12:27 | EKG ---
Test Reason : Blood Pressure : / mmHG Vent. Rate : 064 BPM Atrial Rate : 064 BPM P-R Int : 148 ms QRS Dur : 088 ms QT Int : 406 ms P-R-T Axes : 069 070 054 degrees QTc Int : 418 ms NORMAL SINUS RHYTHM POSSIBLE LEFT ATRIAL ENLARGEMENT BORDERLINE ECG WHEN COMPARED WITH ECG OF 02-JUN-2017 16:46, NO SIGNIFICANT CHANGE WAS FOUND Confirmed by MD CLAUDIA, KAYLEIGH ([id number]) on 12/02/2017 12:27:14 PM Referred By: Confirmed By:KAYLEIGH TAYLOR MD
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
--- NOTE | 2017-12-02 16:40 | PN ---
S COWS - Scale Resting Pulse: 0= [place] 80 or Below Sweatin= Chills/Flushing Restless Observation: 1= Difficult to Sit Still Pupil Size: 0= Normal to Room Light Bone or Joint Aches: 2= Severe Diffuse Aches Runny Nose/ Eye Tearin= None GI Upset > 30mins: 0= None Tremor Observation of Outstretched Hands: 2= Slight Tremor Visible Yawning Observation: 1= 1-2x During Session Anxiety or Irritability: 4=Extreme Anxiety Goose Flesh Skin: 3=Piloerection COWS Score: 14 BHS Progress Note (SOAP) Subjective: Fatigue, Tremors, Anxious, Body Aches. Objective: PT. A & O X 3, OBSERVED AMBULATING ON UNIT. NO ACUTE DISTRESS. 12/02/17 16:38 Vital Signs Temperature 98.1 F 12/02/17 10:40 Pulse Rate 69 12/02/17 10:40 Respiratory Rate 18 12/02/17 10:40 Blood Pressure 137/88 12/02/17 10:40 O2 Sat by Pulse Oximetry (%) Laboratory Tests 12/01/17 12/02/17 12/02/17 23:13 06:06 06:06 WBC 5.4 RBC 4.69 Hgb 13.9 Hct 43.0 MCV 91.6 MCH 29.6 MCHC 32.3 RDW 14.2 Plt Count 184 MPV 10.7 D Sodium 140 Potassium 4.1 Chloride 103 Carbon Dioxide 31 Anion Gap 6 L BUN 11 Creatinine 0.9 D Creat Clearance w eGFR > 60 Random Glucose 154 H D Calcium 8.4 L Total Bilirubin 0.9 D AST 91 H D ALT 90 H D Alkaline Phosphatase 98 Total Protein 6.7 Albumin 3.3 L Urine Color [place] Urine Appearance Turbid Urine pH 5.0 Ur Specific [place] 1.021 Urine Protein Negative Urine Glucose (UA) Negative Urine Ketones Negative Urine Blood Negative Urine Nitrite Negative Urine Bilirubin Negative Urine Urobilinogen 4.0 e.u/dl Ur Leukocyte Esterase Negative RPR Titer 12/02/17 06:06 WBC RBC Hgb Hct MCV MCH MCHC RDW Plt Count MPV Sodium Potassium Chloride Carbon Dioxide Anion Gap BUN Creatinine Creat Clearance w eGFR Random Glucose Calcium Total Bilirubin AST ALT Alkaline Phosphatase Total Protein Albumin Urine Color Urine Appearance Urine pH Ur Specific [place] Urine Protein Urine Glucose (UA) Urine Ketones Urine Blood Urine Nitrite Urine Bilirubin Urine Urobilinogen Ur Leukocyte Esterase RPR Titer Nonreactive LABS NOTED. Assessment: 12/02/17 16:38 WITHDRAWAL SYMPTOMS. Plan: CONTINUE DETOX. BGM ACBK FOR ELEVATED ADMISSION [place]OM GLUCOSE LEVEL. INCREASE DAILY PO FLUID INTAKE.
[2017-12-02] MEDS: THIAMINE HCL 100 MG TABLET (FP) PO SCH (22:23)
[2017-12-03] MEDS: diazePAM 5 MG TABLET PO PRN ×3 (06:08→22:26)
[2017-12-03] MEDS ORDERED: METHADONE HCL 5 MG TABLET (FOR DETOX USE ONLY) PO ONE (10:00)
[2017-12-03] MEDS: NICOTINE 14 MG/24 HOURS TOPICAL PATCH TD SCH (10:17)
[2017-12-03] MEDS: amLODIPine BESYLATE 5 MG TABLET (FP) PO SCH (10:18)
[2017-12-03] MEDS: PRENATAL VITAMINS W/ FOLIC ACID TABLET (FP) PO SCH (10:18)
[2017-12-03] MEDS ORDERED: cloNIDine HCL 0.1 MG TABLET PO PRN (10:55)
[2017-12-03] MEDS ORDERED: CYCLOBENZAPRINE HCL 10 MG TABLET (FP) PO PRN (10:57)
[2017-12-03] MEDS ORDERED: ZOLPIDEM TARTRATE 5 MG TABLET PO PRN (10:57)
--- NOTE | 2017-12-03 15:32 | PN ---
BHS COWS - Scale Resting Pulse: 1= [place] 81-100 Sweatin= Chills/Flushing Restless Observation: 3= Extraneous Movement Pupil Size: 0= Normal to Room Light Bone or Joint Aches: 2= Severe Diffuse Aches Runny Nose/ Eye Tearin= None GI Upset > 30mins: 2= Nausea/Diarrhea Tremor Observation of Outstretched Hands: 2= Slight Tremor Visible Yawning Observation: 1= 1-2x During Session Anxiety or Irritability: 2=Irritable/Anxious Goose Flesh Skin: 0=Smooth Skin COWS Score: 14 BHS Progress Note (SOAP) Subjective: Interrupted sleep, sweating, tremor, chills, agitation, back pain, neck pain Objective: 12/03/17 15:30 Last Vital Signs Temp Pulse Resp BP Pulse Ox 98.7 F 86 18 139/88 12/03/17 14:37 12/03/17 14:37 12/03/17 14:37 12/03/17 14:37 Laboratory Tests 12/01/17 12/02/17 12/02/17 23:13 06:06 06:06 WBC 5.4 RBC 4.69 Hgb 13.9 Hct 43.0 MCV 91.6 MCH 29.6 MCHC 32.3 RDW 14.2 Plt Count 184 MPV 10.7 D Sodium 140 Potassium 4.1 Chloride 103 Carbon Dioxide 31 Anion Gap 6 L BUN 11 Creatinine 0.9 D Creat Clearance w eGFR > 60 POC Glucometer Random Glucose 154 H D Calcium 8.4 L Total Bilirubin 0.9 D AST 91 H D ALT 90 H D Alkaline Phosphatase 98 Total Protein 6.7 Albumin 3.3 L Urine Color [place] Urine Appearance Turbid Urine pH 5.0 Ur Specific [place] 1.021 Urine Protein Negative Urine Glucose (UA) Negative Urine Ketones Negative Urine Blood Negative Urine Nitrite Negative Urine Bilirubin Negative Urine Urobilinogen 4.0 e.u/dl Ur Leukocyte Esterase Negative RPR Titer 12/02/17 12/03/17 06:06 06:07 WBC RBC Hgb Hct MCV MCH MCHC RDW Plt Count MPV Sodium Potassium Chloride Carbon Dioxide Anion Gap BUN Creatinine Creat Clearance w eGFR POC Glucometer 113 Random Glucose Calcium Total Bilirubin AST ALT Alkaline Phosphatase Total Protein Albumin Urine Color Urine Appearance Urine pH Ur Specific [place] Urine Protein Urine Glucose (UA) Urine Ketones Urine Blood Urine Nitrite Urine Bilirubin Urine Urobilinogen Ur Leukocyte Esterase RPR Titer Nonreactive Labs noted: serum glucose 154 Assessment: 12/03/17 15:31 Withdrawal symptoms Noted with hyperglycemia Plan: Continue detox Hyperglycemia: repeat fasting glucose, send A1c
[2017-12-03] MEDS: THIAMINE HCL 100 MG TABLET (FP) PO SCH (22:25)
[2017-12-03] MEDS: ALBUTEROL SO4 18 GM HFA INHALER IH PRN (22:26)
[2017-12-04] MEDS: diazePAM 5 MG TABLET PO PRN (05:49)
[2017-12-04] MEDS ORDERED: METHADONE HCL 5 MG TABLET (FOR DETOX USE ONLY) PO ONE (10:00)
[2017-12-04] MEDS: NICOTINE 14 MG/24 HOURS TOPICAL PATCH TD SCH (10:37)
[2017-12-04] MEDS: PRENATAL VITAMINS W/ FOLIC ACID TABLET (FP) PO SCH (10:37)
[2017-12-04] MEDS: amLODIPine BESYLATE 5 MG TABLET (FP) PO SCH (10:37)
--- NOTE | 2017-12-04 12:30 | PN ---
BHS Progress Note (SOAP) Subjective: Body Aches, Anxious, Tremors. Objective: PT. A & O X 3, OBSERVED AMBULATING ON UNIT. NO ACUTE DISTRESS. 12/04/17 12:31 Vital Signs Temperature 96.9 F L 12/04/17 09:32 Pulse Rate 95 H 12/04/17 09:32 Respiratory Rate 20 12/04/17 09:32 Blood Pressure 128/91 12/04/17 09:32 O2 Sat by Pulse Oximetry (%) Laboratory Tests 12/01/17 12/02/17 12/02/17 23:13 06:06 06:06 WBC 5.4 RBC 4.69 Hgb 13.9 Hct 43.0 MCV 91.6 MCH 29.6 MCHC 32.3 RDW 14.2 Plt Count 184 MPV 10.7 D Sodium 140 Potassium 4.1 Chloride 103 Carbon Dioxide 31 Anion Gap 6 L BUN 11 Creatinine 0.9 D Creat Clearance w eGFR > 60 POC Glucometer Random Glucose 154 H D Calcium 8.4 L Total Bilirubin 0.9 D AST 91 H D ALT 90 H D Alkaline Phosphatase 98 Total Protein 6.7 Albumin 3.3 L Urine Color [place] Urine Appearance Turbid Urine pH 5.0 Ur Specific [place] 1.021 Urine Protein Negative Urine Glucose (UA) Negative Urine Ketones Negative Urine Blood Negative Urine Nitrite Negative Urine Bilirubin Negative Urine Urobilinogen 4.0 e.u/dl Ur Leukocyte Esterase Negative RPR Titer 12/02/17 12/03/17 12/04/17 06:06 06:07 05:38 WBC RBC Hgb Hct MCV MCH MCHC RDW Plt Count MPV Sodium Potassium Chloride Carbon Dioxide Anion Gap BUN Creatinine Creat Clearance w eGFR POC Glucometer 113 120 Random Glucose Calcium Total Bilirubin AST ALT Alkaline Phosphatase Total Protein Albumin Urine Color Urine Appearance Urine pH Ur Specific [place] Urine Protein Urine Glucose (UA) Urine Ketones Urine Blood Urine Nitrite Urine Bilirubin Urine Urobilinogen Ur Leukocyte Esterase RPR Titer Nonreactive LABS NOTED. Assessment: 12/04/17 12:31 WITHDRAWAL SYMPTOMS. Plan: CONTINUE DETOX.
[2017-12-04] MEDS: ALBUTEROL SO4 18 GM HFA INHALER IH PRN (22:06)
[2017-12-04] MEDS: THIAMINE HCL 100 MG TABLET (FP) PO SCH (22:06)
[2017-12-05] MEDS ORDERED: METHADONE HCL 10 MG TABLET (FOR DETOX USE ONLY) PO ONE (10:00)
[2017-12-05] MEDS: amLODIPine BESYLATE 5 MG TABLET (FP) PO SCH (10:54)
[2017-12-05] MEDS: NICOTINE 14 MG/24 HOURS TOPICAL PATCH TD SCH (10:54)
[2017-12-05] MEDS: PRENATAL VITAMINS W/ FOLIC ACID TABLET (FP) PO SCH (10:54)
--- NOTE | 2017-12-05 12:29 | PN ---
BHS Progress Note (SOAP) Subjective: Body Aches, Tremors, Fatigue. Objective: PT. A & O X 3. NO ACUTE DISTRESS. 12/05/17 12:30 Vital Signs Temperature 98.8 F 12/05/17 09:20 Pulse Rate 86 12/05/17 09:20 Respiratory Rate 18 12/05/17 09:20 Blood Pressure 122/85 12/05/17 09:20 O2 Sat by Pulse Oximetry (%) Laboratory Tests 12/01/17 12/02/17 12/02/17 23:13 06:06 06:06 WBC 5.4 RBC 4.69 Hgb 13.9 Hct 43.0 MCV 91.6 MCH 29.6 MCHC 32.3 RDW 14.2 Plt Count 184 MPV 10.7 D Sodium 140 Potassium 4.1 Chloride 103 Carbon Dioxide 31 Anion Gap 6 L BUN 11 Creatinine 0.9 D Creat Clearance w eGFR > 60 POC Glucometer Random Glucose 154 H D Calcium 8.4 L Total Bilirubin 0.9 D AST 91 H D ALT 90 H D Alkaline Phosphatase 98 Total Protein 6.7 Albumin 3.3 L Urine Color [place] Urine Appearance Turbid Urine pH 5.0 Ur Specific [place] 1.021 Urine Protein Negative Urine Glucose (UA) Negative Urine Ketones Negative Urine Blood Negative Urine Nitrite Negative Urine Bilirubin Negative Urine Urobilinogen 4.0 e.u/dl Ur Leukocyte Esterase Negative RPR Titer 12/02/17 12/03/17 12/04/17 06:06 06:07 05:38 WBC RBC Hgb Hct MCV MCH MCHC RDW Plt Count MPV Sodium Potassium Chloride Carbon Dioxide Anion Gap BUN Creatinine Creat Clearance w eGFR POC Glucometer 113 120 Random Glucose Calcium Total Bilirubin AST ALT Alkaline Phosphatase Total Protein Albumin Urine Color Urine Appearance Urine pH Ur Specific [place] Urine Protein Urine Glucose (UA) Urine Ketones Urine Blood Urine Nitrite Urine Bilirubin Urine Urobilinogen Ur Leukocyte Esterase RPR Titer Nonreactive LABS NOTED. Assessment: 12/05/17 12:30 WITHDRAWAL SYMPTOMS. Plan: CONTINUE DETOX.
[2017-12-05] MEDS: ALBUTEROL SO4 18 GM HFA INHALER IH PRN (12:36)
--- NOTE | 2017-12-05 13:28 | DS ---
[facility] Detox Discharge Summary Admission Date: 12/01/17 Discharge Date: 12/05/17 - History Present History: Opioid Dependence Additional Comments: PATIENT REPORTS THAT HE FEELS WELL OVERALL AND THAT SEVERITY OF CURRENT DETOX SYMPTOMS IS MINIMAL. PATIENT IS CONCERNED ABOUT GETTING TO [facility] ( [place] BECAUSE HE NEEDS TO GET THERE VERY EARLY IN THE AM TOMORROW IN ORDER TO BE ENSURED A BED FOR ADMISSION. AT PATIENT'S REQUEST, PATIENT DISCHARGED AT THIS TIME. LAST DOSAGE OF DETOX METHADONE (5 MG PO) ORDERED PRIOR TO DISCHARGE. PATIENT WAS DISCHARGED FROM DETOX UNIT IN STABLE MEDICAL CONDITION. Pertinent Past History: Hep C, Asthma, Nicotine Dependence, Insomnia, Arthritis. - Physical Exam Results Vital Signs: Vital Signs Temperature 98.8 F 12/05/17 09:20 Pulse Rate 86 12/05/17 09:20 Respiratory Rate 18 12/05/17 09:20 Blood Pressure 122/85 12/05/17 09:20 O2 Sat by Pulse Oximetry (%) Pertinent Admission Physical Exam Findings: WITHDRAWAL SYMPTOMS. Laboratory Tests 12/01/17 12/02/17 12/02/17 23:13 06:06 06:06 WBC 5.4 RBC 4.69 Hgb 13.9 Hct 43.0 MCV 91.6 MCH 29.6 MCHC 32.3 RDW 14.2 Plt Count 184 MPV 10.7 D Sodium 140 Potassium 4.1 Chloride 103 Carbon Dioxide 31 Anion Gap 6 L BUN 11 Creatinine 0.9 D Creat Clearance w eGFR > 60 POC Glucometer Random Glucose 154 H D Calcium 8.4 L Total Bilirubin 0.9 D AST 91 H D ALT 90 H D Alkaline Phosphatase 98 Total Protein 6.7 Albumin 3.3 L Urine Color [place] Urine Appearance Turbid Urine pH 5.0 Ur Specific [place] 1.021 Urine Protein Negative Urine Glucose (UA) Negative Urine Ketones Negative Urine Blood Negative Urine Nitrite Negative Urine Bilirubin Negative Urine Urobilinogen 4.0 e.u/dl Ur Leukocyte Esterase Negative RPR Titer 12/02/17 12/03/17 12/04/17 06:06 06:07 05:38 WBC RBC Hgb Hct MCV MCH MCHC RDW Plt Count MPV Sodium Potassium Chloride Carbon Dioxide Anion Gap BUN Creatinine Creat Clearance w eGFR POC Glucometer 113 120 Random Glucose Calcium Total Bilirubin AST ALT Alkaline Phosphatase Total Protein Albumin Urine Color Urine Appearance Urine pH Ur Specific [place] Urine Protein Urine Glucose (UA) Urine Ketones Urine Blood Urine Nitrite Urine Bilirubin Urine Urobilinogen Ur Leukocyte Esterase RPR Titer Nonreactive LABS NOTED. - Treatment Hospital Course: Detox Protocol Followed, Detoxed Safely, Responded well, Discharged Condition Good, Rehab Referral Accepted Patient has Accepted a Rehab Referral to: [facility] ([place] - Medication Discharge Medications: Ambulatory Orders Benzonatate [Tessalon Pearls -] 100 mg PO TID 06/02/17 Prednisone [Deltasone -] 40 mg PO DAILY 06/02/17 Albuterol Sulfate Inhaler - [Ventolin HFA Inhaler -] 2 inh IH Q4H PRN #1 inh 06/22 Amlodipine Besylate [Norvasc -] 5 mg PO DAILY #30 tab 06/13/17 - Diagnosis (1) Nicotine dependence Current Visit: Yes Status: Chronic Qualifiers: Nicotine product type: cigarettes Substance use status: uncomplicated Qualified Code(s): F17.210 - Nicotine dependence, cigarettes, uncomplicated (2) Opioid dependence with withdrawal Current Visit: Yes Status: Acute (3) Sleep difficulties Current Visit: Yes Status: Acute (4) Wheezing on left of side of chest on inhalation Current Visit: Yes Status: Acute (5) Asthma Current Visit: Yes Status: Chronic Qualifiers: Asthma severity: mild Asthma persistence: unspecified Asthma complication type: uncomplicated Qualified Code(s): J45.909 - Unspecified asthma, uncomplicated (6) Obesity (BMI 30-39.9) Current Visit: Yes Status: Chronic (7) Essential hypertension Current Visit: Yes Status: Chronic (8) Hepatitis C Current Visit: Yes Status: Chronic Qualifiers: Viral hepatitis chronicity: chronic Hepatic coma status: without hepatic coma Qualified Code(s): B18.2 - Chronic viral hepatitis C (9) Arthritis Current Visit: Yes Status: Chronic - AMA Did Patient Leave Against Medical Advice: No
[2017-12-05] MEDS ORDERED: METHADONE HCL 5 MG TABLET (FOR DETOX USE ONLY) PO ONE (13:30)
[2017-12-05 13:43] VITALS: BP 117/78; PULSE 90; TEMP 98.1
[2017-12-06] MEDS ORDERED: METHADONE HCL 5 MG TABLET (FOR DETOX USE ONLY) PO ONE (06:00)
== END 2017-12-05 13:43 | disposition home or self-care (01) | DRG 773 ==
LOC: YASAS 11:26 → Y3N 18:05
PROVIDERS: ADMIT Internal Medicine; ATTEND Internal Medicine
PROC: HZ2ZZZZ Detoxification Services for Substance Abuse Treatment (ICD-10-PCS; principal; 2017-12-01)
DX: F11.23 Opioid dependence with withdrawal (principal); F17.210 Nicotine dependence, cigarettes, uncomplicated; I10 Essential (primary) hypertension; J45.909 Unspecified asthma, uncomplicated; B18.2 Chronic viral hepatitis C; M19.90 Unspecified osteoarthritis, unspecified site; R06.2 Wheezing; G47.00 Insomnia, unspecified; R73.9 Hyperglycemia, unspecified; E66.9 Obesity, unspecified; Z68.37 Body mass index [BMI] 37.0-37.9, adult
CPT/HCPCS: 36415; 80053; 81003; 82962; 85027; 86593; 93005; 93010

== ENCOUNTER 2018-07-19 13:32 | Inpatient (IN) | payer OTHER ==
[2018-07-19 17:01] VITALS: BMI 37.3
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
[2018-07-19] MEDS ORDERED: MAG HYDROX/AL HYDROX/SIMETH 30 ML UNIT-DOSE CUP PO PRN (20:58)
[2018-07-19] MEDS ORDERED: NICOTINE POLACRILEX 2 MG GUM BC PRN (20:58)
[2018-07-19] MEDS ORDERED: guaiFENesin/D-METHORPHAN HB 10 ML UNIT-DOSE CUPS PO PRN (20:58)
[2018-07-19] MEDS ORDERED: MAGNESIUM HYDROX 2400MG/30ML ORAL SUSPENSION 30 ML CUP PO PRN (20:58)
[2018-07-19] MEDS ORDERED: MENTHOL/PHENOL 1 EACH UD MM PRN (20:58)
[2018-07-19] MEDS ORDERED: MAGNESIUM CITRATE 300 ML BOTTLE PO PRN (20:58)
[2018-07-19] MEDS ORDERED: LOPERAMIDE HCL 2 MG CAPSULE PO PRN (20:58)
[2018-07-19] MEDS ORDERED: P-EPHED 60MG/TRIPROLIDI 2.5MG TABLET PO PRN (20:58)
[2018-07-19] MEDS ORDERED: METHADONE HCL 10 MG TABLET (FOR DETOX USE ONLY) PO ONE ×2 (20:58→23:00)
[2018-07-19] MEDS ORDERED: ACETAMINOPHEN 325 MG TABLET (FP) PO PRN (20:58)
[2018-07-19] MEDS: THIAMINE HCL 100 MG TABLET (FP) PO SCH (22:42)
[2018-07-19] MEDS: ALBUTEROL SO4 8 GM HFA INHALER IH PRN (23:20)
[2018-07-20] MEDS: diazePAM 5 MG TABLET PO PRN ×2 (08:26→22:27)
--- NOTE | 2018-07-20 09:34 | EKG ---
Test Reason : Blood Pressure : / mmHG Vent. Rate : 068 BPM Atrial Rate : 068 BPM P-R Int : 146 ms QRS Dur : 080 ms QT Int : 408 ms P-R-T Axes : 053 058 043 degrees QTc Int : 433 ms NORMAL SINUS RHYTHM NORMAL ECG WHEN COMPARED WITH ECG OF 01-DEC-2017 19:32, NO SIGNIFICANT CHANGE WAS FOUND Confirmed by CORTNEY NOLASCO MD ([id number]) on 07/20/2018 9:34:34 AM Referred By: Confirmed By:CORTNEY NOLASCO MD
[2018-07-20] MEDS ORDERED: METHADONE HCL 10 MG TABLET (FOR DETOX USE ONLY) PO ONE (10:00)
[2018-07-20] MEDS: NICOTINE 21 MG/24 HOURS TOPICAL PATCH TD SCH (10:19)
[2018-07-20] MEDS: PRENATAL VITAMINS W/ FOLIC ACID TABLET (FP) PO SCH (10:20)
[2018-07-20] MEDS: BACITRACIN 15 GM TUBE TOPICAL OINTMENT TP SCH (11:03)
[2018-07-20 11:14] LABS: HEMATOCRIT 40.1 % (35.4-49); MCH 29.6 pg (25.7-33.7); MCHC 32.5 g/dl (32.0-35.9); MEAN PLT VOLUME 10.3 fl (7.5-11.1); PLATELET COUNT 132 K/MM3 (134-434); RDW 14.3 % (11.9-15.9); WHITE BLOOD COUNT 5.3 K/mm3 (4.0-10.0)
[2018-07-20 11:18] LABS: URINE APPEARANCE CLEAR; URINE BILIRUBIN NEGATIVE (<2.0 mg/dL); URINE COLOR LTYELLOW; URINE GLUCOSE (UA) NEGATIVE (NEGATIVE); URINE KETONE NEGATIVE (NEGATIVE); URINE LEUK ESTERASE NEGATIVE (NEGATIVE); URINE NITRITE NEGATIVE (NEGATIVE); URINE PROTEIN NEGATIVE (NEGATIVE)
[2018-07-20 11:22] LABS: CHLORIDE 105 mmol/L (98-107); POTASSIUM 4.2 mmol/L (3.5-5.1); SODIUM 143 mmol/L (136-145)
[2018-07-20 11:34] LABS: ALBUMIN 2.9 g/dl (3.4-5.0); ALK PHOS 100 U/L (45-117); ANION GAP 8 MMOL/L (8-16); BILIRUBIN,TOTAL 0.6 mg/dL (0.2-1.0); BLOOD UREA NITROGEN 8 mg/dL (7-18); CALCIUM 8.3 mg/dL (8.5-10.1); CO2 30 mmol/L (21-32); CREATININE 0.6 mg/dL (0.55-1.3); GLUCOSE,RANDOM 103 mg/dL (74-106); SGOT/AST 94 U/L (15-37); SGPT/ALT 81 U/L (13-61); TOT PROT 6.1 g/dl (6.4-8.2)
--- NOTE | 2018-07-20 12:17 | CONSULT ---
[facility] Psychiatric Consult - Data Date of interview: 07/20/18 Admission source: [facility] Identifying data: Patient is approached at bedside for the psychiatric interview.Mr Solo declines." I don't want to talk to psychiatrists." Nursing staff is made aware.
--- NOTE | 2018-07-20 12:17 | PN ---
BHS COWS - Scale Resting Pulse: 0= [place] 80 or Below Sweatin= Chills/Flushing Restless Observation: 1= Difficult to Sit Still Pupil Size: 1= Pupils >than Normal Bone or Joint Aches: 1= Mild Discomfort Runny Nose/ Eye Tearin= Runny Nose/Eyes GI Upset > 30mins: 0= None Tremor Observation of Outstretched Hands: 1= Tremor [place], Not Seen Yawning Observation: 4= Several Times/Minute Anxiety or Irritability: 2=Irritable/Anxious Goose Flesh Skin: 0=Smooth Skin COWS Score: 13 BHS Progress Note (SOAP) Subjective: irritable, anxious, body aches Assessment: 07/20/18 12:15 Vital Signs Temperature 98.3 F 07/20/18 09:09 Pulse Rate 68 07/20/18 09:09 Respiratory Rate 18 07/20/18 09:09 Blood Pressure 119/73 07/20/18 09:09 O2 Sat by Pulse Oximetry (%) Laboratory Last Values WBC 5.3 K/mm3 (4.0-10.0) 07/20/18 07:20 RBC 4.40 M/mm3 (4.00-5.60) 07/20/18 07:20 Hgb 13.0 GM/dL (11.7-16.9) 07/20/18 07:20 Hct 40.1 % (35.4-49) 07/20/18 07:20 MCV 91.0 fl (80-96) 07/20/18 07:20 MCH 29.6 pg (25.7-33.7) 07/20/18 07:20 MCHC 32.5 g/dl (32.0-35.9) 07/20/18 07:20 RDW 14.3 % (11.9-15.9) 07/20/18 07:20 Plt Count 132 K/MM3 (134-434) L D 07/20/18 07:20 MPV 10.3 fl (7.5-11.1) 07/20/18 07:20 Sodium 143 mmol/L (136-145) 07/20/18 07:20 Potassium 4.2 mmol/L (3.5-5.1) 07/20/18 07:20 Chloride 105 mmol/L (98-107) 07/20/18 07:20 Carbon Dioxide 30 mmol/L (21-32) 07/20/18 07:20 Anion Gap 8 MMOL/L (8-16) 07/20/18 07:20 BUN 8 mg/dL (7-18) 07/20/18 07:20 Creatinine 0.6 mg/dL (0.55-1.3) 07/20/18 07:20 Creat Clearance w eGFR > 60 (>60) 07/20/18 07:20 Random Glucose 103 mg/dL (74-106) 07/20/18 07:20 Calcium 8.3 mg/dL (8.5-10.1) L 07/20/18 07:20 Total Bilirubin 0.6 mg/dL (0.2-1.0) 07/20/18 07:20 AST 94 U/L (15-37) H 07/20/18 07:20 ALT 81 U/L (13-61) H 07/20/18 07:20 Alkaline Phosphatase 100 U/L (45-117) 07/20/18 07:20 Total Protein 6.1 g/dl (6.4-8.2) L 07/20/18 07:20 Albumin 2.9 g/dl (3.4-5.0) L 07/20/18 07:20 Urine Color Ltyellow 07/20/18 07:20 Urine Appearance Clear 07/20/18 07:20 Urine pH 6.0 (5.0-8.0) 07/20/18 07:20 Ur Specific [place] 1.008 (1.001-1.035) 07/20/18 07:20 Urine Protein Negative (NEGATIVE) 07/20/18 07:20 Urine Glucose (UA) Negative (NEGATIVE) 07/20/18 07:20 Urine Ketones Negative (NEGATIVE) 07/20/18 07:20 Urine Blood Negative (NEGATIVE) 07/20/18 07:20 Urine Nitrite Negative (NEGATIVE) 07/20/18 07:20 Urine Bilirubin Negative (<2.0 mg/dL) 07/20/18 07:20 Urine Urobilinogen 2.0 mg/dL (0.2-1.0) 07/20/18 07:20 Ur Leukocyte Esterase Negative (NEGATIVE) 07/20/18 07:20 Aox3 no distress full ROM ambulating in the unit withdrawal sx Plan: increase po fluids continue detox continue to monitor
[2018-07-20] MEDS: ALBUTEROL SO4 8 GM HFA INHALER IH PRN (17:51)
[2018-07-20] MEDS: THIAMINE HCL 100 MG TABLET (FP) PO SCH (22:27)
[2018-07-21] MEDS ORDERED: METHADONE HCL 5 MG TABLET (FOR DETOX USE ONLY) PO ONE (10:00)
[2018-07-21] MEDS: PRENATAL VITAMINS W/ FOLIC ACID TABLET (FP) PO SCH (10:16)
[2018-07-21] MEDS: diazePAM 5 MG TABLET PO PRN (10:17)
[2018-07-21] MEDS: BACITRACIN 15 GM TUBE TOPICAL OINTMENT TP SCH (10:17)
[2018-07-21] MEDS: NICOTINE 21 MG/24 HOURS TOPICAL PATCH TD SCH (10:17)
[2018-07-21 11:36] LABS: ALBUMIN 3.4 g/dl (3.4-5.0); ANION GAP 13 MMOL/L (8-16); BLOOD UREA NITROGEN 6 mg/dL (7-18); CALCIUM 8.8 mg/dL (8.5-10.1); CHLORIDE 103 mmol/L (98-107); CO2 26 mmol/L (21-32); GLUCOSE,RANDOM 108 mg/dL (74-106); POTASSIUM 3.9 mmol/L (3.5-5.1); SODIUM 142 mmol/L (136-145)
[2018-07-21 11:45] LABS: ALK PHOS 118 U/L (45-117); BILIRUBIN,TOTAL 1.3 mg/dL (0.2-1.0); CREATININE 0.6 mg/dL (0.55-1.3); SGOT/AST 100 U/L (15-37); SGPT/ALT 86 U/L (13-61); TOT PROT 7.3 g/dl (6.4-8.2)
[2018-07-21] MEDS: IBUPROFEN 400 MG TABLET (FP) PO PRN ×2 (13:53→19:22)
--- NOTE | 2018-07-21 14:33 | PN ---
BHS Progress Note (SOAP) Subjective: patient reports nausea, bodyaches Objective: 07/21/18 14:32 aaox 3 , resting in bed 07/21/18 14:32 CBC, BMP 07/20/18 07:20 07/21/18 07:50 Vital Signs Temperature 98.4 F 07/21/18 10:52 Pulse Rate 77 07/21/18 10:52 Respiratory Rate 20 07/21/18 10:52 Blood Pressure 138/90 07/21/18 10:52 O2 Sat by Pulse Oximetry (%) Assessment: 07/21/18 14:32 opioid dependence Plan: continue taper
[2018-07-21] MEDS: MELATONIN 5 MG TABLETS PO PRN (22:54)
[2018-07-21] MEDS: hydrOXYzine PAMOATE 25 MG CAPSULE (FP) PO PRN (22:54)
[2018-07-21] MEDS: THIAMINE HCL 100 MG TABLET (FP) PO SCH (23:11)
[2018-07-22] MEDS: IBUPROFEN 400 MG TABLET (FP) PO PRN ×2 (07:16→23:19)
[2018-07-22] MEDS ORDERED: METHADONE HCL 5 MG TABLET (FOR DETOX USE ONLY) PO ONE (10:00)
[2018-07-22] MEDS: BACITRACIN 15 GM TUBE TOPICAL OINTMENT TP SCH (10:12)
[2018-07-22] MEDS: NICOTINE 21 MG/24 HOURS TOPICAL PATCH TD SCH (10:12)
[2018-07-22] MEDS: PRENATAL VITAMINS W/ FOLIC ACID TABLET (FP) PO SCH (10:12)
--- NOTE | 2018-07-22 16:10 | PN ---
BHS Progress Note (SOAP) Subjective: Interrupted sleep Objective: 07/22/18 16:08 Last Vital Signs Temp Pulse Resp BP Pulse Ox 99.2 F 66 20 130/74 07/22/18 09:44 07/22/18 09:44 07/22/18 09:44 07/22/18 09:44 Laboratory Tests 07/20/18 07/20/18 07/20/18 07:20 07:20 07:20 WBC 5.3 RBC 4.40 Hgb 13.0 Hct 40.1 MCV 91.0 MCH 29.6 MCHC 32.5 RDW 14.3 Plt Count 132 L D MPV 10.3 Sodium 143 Potassium 4.2 Chloride 105 Carbon Dioxide 30 Anion Gap 8 BUN 8 Creatinine 0.6 Creat Clearance w eGFR > 60 Random Glucose 103 Calcium 8.3 L Total Bilirubin 0.6 AST 94 H ALT 81 H Alkaline Phosphatase 100 Total Protein 6.1 L Albumin 2.9 L Urine Color Urine Appearance Urine pH Ur Specific [place] Urine Protein Urine Glucose (UA) Urine Ketones Urine Blood Urine Nitrite Urine Bilirubin Urine Urobilinogen Ur Leukocyte Esterase RPR Titer Nonreactive 07/20/18 07/21/18 07:20 07:50 WBC RBC Hgb Hct MCV MCH MCHC RDW Plt Count MPV Sodium 142 Potassium 3.9 Chloride 103 Carbon Dioxide 26 Anion Gap 13 BUN 6 L Creatinine 0.6 Creat Clearance w eGFR > 60 Random Glucose 108 H Calcium 8.8 Total Bilirubin 1.3 H AST 100 H ALT 86 H Alkaline Phosphatase 118 H Total Protein 7.3 Albumin 3.4 Urine Color Ltyellow Urine Appearance Clear Urine pH 6.0 Ur Specific [place] 1.008 Urine Protein Negative Urine Glucose (UA) Negative Urine Ketones Negative Urine Blood Negative Urine Nitrite Negative Urine Bilirubin Negative Urine Urobilinogen 2.0 Ur Leukocyte Esterase Negative RPR Titer Labs reviewed Assessment: 07/22/18 16:09 Withdrawal symptoms Plan: Continue detox
[2018-07-22] MEDS: THIAMINE HCL 100 MG TABLET (FP) PO SCH (22:06)
[2018-07-22] MEDS: hydrOXYzine PAMOATE 25 MG CAPSULE (FP) PO PRN (22:07)
[2018-07-22] MEDS: MELATONIN 5 MG TABLETS PO PRN (22:08)
[2018-07-22] MEDS: ALBUTEROL SO4 8 GM HFA INHALER IH PRN (23:18)
[2018-07-23] MEDS ORDERED: METHADONE HCL 10 MG TABLET (FOR DETOX USE ONLY) PO ONE (10:00)
[2018-07-23] MEDS: PRENATAL VITAMINS W/ FOLIC ACID TABLET (FP) PO SCH (10:18)
[2018-07-23] MEDS: NICOTINE 21 MG/24 HOURS TOPICAL PATCH TD SCH (10:18)
[2018-07-23] MEDS: IBUPROFEN 400 MG TABLET (FP) PO PRN ×2 (15:03→22:07)
--- NOTE | 2018-07-23 18:42 | PN ---
BHS Progress Note (SOAP) Subjective: shakes sweats sleep disturbance requesting to leave unit early tomorrow Objective: 07/23/18 18:41 A & O x 3 Irritable Vital Signs Temperature 99.4 F 07/23/18 17:59 Pulse Rate 86 07/23/18 17:59 Respiratory Rate 20 07/23/18 17:59 Blood Pressure 121/84 07/23/18 17:59 O2 Sat by Pulse Oximetry (%) Assessment: 07/23/18 18:41 withdrawal sx Plan: continue detox for d/c in the a.m scripts sent to rx on file
[2018-07-23] MEDS: ALBUTEROL SO4 8 GM HFA INHALER IH PRN (19:35)
[2018-07-23] MEDS: hydrOXYzine PAMOATE 25 MG CAPSULE (FP) PO PRN (19:38)
[2018-07-23] MEDS: THIAMINE HCL 100 MG TABLET (FP) PO SCH (22:07)
[2018-07-23] MEDS: MELATONIN 5 MG TABLETS PO PRN (22:07)
[2018-07-24] MEDS: ALBUTEROL SO4 8 GM HFA INHALER IH PRN (04:31)
[2018-07-24] MEDS: IBUPROFEN 400 MG TABLET (FP) PO PRN (04:33)
[2018-07-24] MEDS ORDERED: METHADONE HCL 5 MG TABLET (FOR DETOX USE ONLY) PO ONE (06:00)
[2018-07-24 06:34] VITALS: BP 128/91; PULSE 85; TEMP 97.6
== END 2018-07-24 06:25 | disposition home or self-care (01) | DRG 861 ==
LOC: YASAS 13:32 → Y3N 20:07
PROC: HZ2ZZZZ Detoxification Services for Substance Abuse Treatment (ICD-10-PCS; principal; 2018-07-19)
DX: F17.210 Nicotine dependence, cigarettes, uncomplicated (principal); G47.00 Insomnia, unspecified; I10 Essential (primary) hypertension; J45.909 Unspecified asthma, uncomplicated; B18.2 Chronic viral hepatitis C; M54.5 Low back pain; E66.9 Obesity, unspecified; Z68.37 Body mass index [BMI] 37.0-37.9, adult; R73.9 Hyperglycemia, unspecified
CPT/HCPCS: 36415; 80053; 81003; 85027; 86593; 93005; 93010

== ENCOUNTER 2019-03-07 23:04 | Inpatient (IN) | payer OTHER ==
[2019-03-07 23:37] VITALS: BMI 36.7
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
[2019-03-08] MEDS ORDERED: MAGNESIUM CITRATE 300 ML BOTTLE PO PRN (01:59)
[2019-03-08] MEDS ORDERED: NICOTINE POLACRILEX 2 MG GUM BUC PRN (01:59)
[2019-03-08] MEDS ORDERED: MENTHOL/PHENOL 1 EACH UD MM PRN (01:59)
[2019-03-08] MEDS ORDERED: IBUPROFEN 400 MG TABLET (FP) PO PRN (01:59)
[2019-03-08] MEDS ORDERED: ACETAMINOPHEN 325 MG TABLET (FP) PO PRN ×2 (01:59)
[2019-03-08] MEDS ORDERED: BISMUTH SUBSALICYLATE 524 MG/30 ML UD PO PRN (01:59)
[2019-03-08] MEDS ORDERED: METHADONE HCL 10 MG TABLET (FOR DETOX USE ONLY) PO ONE ×2 (01:59→10:00)
[2019-03-08] MEDS ORDERED: MAG HYDROX/AL HYDROX/SIMETH 30 ML UNIT-DOSE CUP PO PRN (01:59)
[2019-03-08] MEDS ORDERED: MAGNESIUM HYDROX 2400MG/30ML ORAL SUSPENSION 30 ML CUP PO PRN (01:59)
[2019-03-08] MEDS ORDERED: METHOCARBAMOL 500 MG TABLET PO PRN (01:59)
[2019-03-08] MEDS: cloNIDine HCL 0.1 MG TABLET PO PRN ×2 (03:55→22:23)
[2019-03-08] MEDS: P-EPHED 60MG/TRIPROLIDI 2.5MG TABLET PO PRN (04:02)
[2019-03-08] MEDS: ALBUTEROL SO4 8 GM HFA INHALER IH PRN ×3 (04:05→19:35)
[2019-03-08] MEDS: PRENATAL VITAMINS W/ FOLIC ACID TABLET (FP) PO SCH (10:31)
[2019-03-08] MEDS: amLODIPine BESYLATE 5 MG TABLET (FP) PO SCH (10:31)
[2019-03-08] MEDS: NICOTINE 14 MG/24 HOURS TOPICAL PATCH TD SCH (10:31)
--- NOTE | 2019-03-08 17:12 | PN ---
BHS COWS - Scale Resting Pulse: 0= [place] 80 or Below Sweatin= Chills/Flushing Restless Observation: 0= Sits Still Pupil Size: 0= Normal to Room Light Bone or Joint Aches: 2= Severe Diffuse Aches Runny Nose/ Eye Tearin= Nasal Congestion GI Upset > 30mins: 2= Nausea/Diarrhea Tremor Observation of Outstretched Hands: 0= None Yawning Observation: 1= 1-2x During Session Anxiety or Irritability: 2=Irritable/Anxious Goose Flesh Skin: 3=Piloerection COWS Score: 12 BHS Progress Note (SOAP) Subjective: Sweating, Diarrhea, Body Aches, Interrupted Sleep. Objective: PATIENT A & O X 3, OBSERVED AMBULATING ON UNIT UNASSISTED. IN NO ACUTE DISTRESS. 03/08/19 17:12 Vital Signs Temperature 98.1 F 03/08/19 14:30 Pulse Rate 71 03/08/19 14:30 Respiratory Rate 19 03/08/19 14:30 Blood Pressure 122/64 03/08/19 14:30 O2 Sat by Pulse Oximetry (%) ADMISSION LAB RESULTS PENDING. 03/08/19 17:13 Assessment: 03/08/19 17:14 WITHDRAWAL SYMPTOMS. Plan: CONTINUE DETOX. INCREASE DAILY PO FLUID INTAKE. PRN PEPTO BISMOL PO FOR DIARRHEA.
[2019-03-08] MEDS: THIAMINE HCL 100 MG TABLET (FP) PO SCH (22:23)
[2019-03-08] MEDS: hydrOXYzine PAMOATE 25 MG CAPSULE (FP) PO PRN (22:23)
[2019-03-08] MEDS: MELATONIN 5 MG TABLETS PO PRN (22:24)
[2019-03-09] MEDS: ALBUTEROL SO4 8 GM HFA INHALER IH PRN ×2 (02:37→06:42)
[2019-03-09] MEDS: hydrOXYzine PAMOATE 25 MG CAPSULE (FP) PO PRN ×2 (06:43→22:08)
[2019-03-09] MEDS: P-EPHED 60MG/TRIPROLIDI 2.5MG TABLET PO PRN (06:43)
[2019-03-09] MEDS: cloNIDine HCL 0.1 MG TABLET PO PRN ×2 (06:44→22:08)
[2019-03-09] MEDS ORDERED: METHADONE HCL 10 MG TABLET (FOR DETOX USE ONLY) PO ONE (10:00)
[2019-03-09 10:30] LABS: HEMATOCRIT 46.5 % (35.4-49); HEMOGLOBIN 15.4 GM/dL (11.7-16.9); MCH 30.3 pg (25.7-33.7); MCHC 33.1 g/dl (32.0-35.9); MEAN CELL VOLUME 91.8 fl (80-96); MEAN PLT VOLUME 10.7 fl (7.5-11.1); PLATELET COUNT 157 K/MM3 (134-434); RBC 5.07 M/mm3 (4.00-5.60); RDW 13.6 % (11.9-15.9); WHITE BLOOD COUNT 5.6 K/mm3 (4.0-10.0)
[2019-03-09 10:31] LABS: ALBUMIN 3.4 g/dl (3.4-5.0); ALK PHOS 111 U/L (45-117); ANION GAP 7 MMOL/L (8-16); BILIRUBIN,TOTAL 1.6 mg/dL (0.2-1); BLOOD UREA NITROGEN 8 mg/dL (7-18); CALCIUM 9.3 mg/dL (8.5-10.1); CHLORIDE 101 mmol/L (98-107); CO2 30 mmol/L (21-32); CREATININE 0.8 mg/dL (0.55-1.3); GLUCOSE,RANDOM 141 mg/dL (74-106); SGOT/AST 99 U/L (15-37); SGPT/ALT 87 U/L (13-61); SODIUM 138 mmol/L (136-145); TOT PROT 7.4 g/dl (6.4-8.2)
[2019-03-09] MEDS: NICOTINE 14 MG/24 HOURS TOPICAL PATCH TD SCH (10:37)
[2019-03-09] MEDS: PRENATAL VITAMINS W/ FOLIC ACID TABLET (FP) PO SCH (10:37)
[2019-03-09] MEDS: amLODIPine BESYLATE 5 MG TABLET (FP) PO SCH (10:38)
[2019-03-09] MEDS: ALBUTEROL SO4 2.5/IPRATROPIUM 0.5 INH SOL 3 ML VIAL.NEB. NEB PRN ×2 (14:56→20:28)
--- NOTE | 2019-03-09 15:13 | PN ---
S Progress Note Note: S: "I'm having difficulty breathing. O: Vital Signs 03/09/19 03/09/19 09:56 14:21 Temperature 99.1 F 98.3 F Pulse Rate 72 74 Respiratory 18 18 Rate Blood Pressure 156/99 162/98 O2 sat in room air is 96%, wheezing in b/l lung moore. A: Acute Asthma exacerbation. Plan: Continue Albuterol inh. Start albuterol/atrovent neb Q6hrs PRN. Monitor O2 sat as needed.
--- NOTE | 2019-03-09 15:14 | PN ---
BHS COWS - Scale Resting Pulse: 0= [place] 80 or Below Sweatin= Beads of Sweat on Face Restless Observation: 0= Sits Still Pupil Size: 0= Normal to Room Light Bone or Joint Aches: 4=Acute Joint/Muscle Pain Runny Nose/ Eye Tearin= None GI Upset > 30mins: 0= None Tremor Observation of Outstretched Hands: 2= Slight Tremor Visible Yawning Observation: 1= 1-2x During Session Anxiety or Irritability: 0= None Goose Flesh Skin: 0=Smooth Skin COWS Score: 10 BHS Progress Note (SOAP) Subjective: c/o sweats, interrupted sleep, muscle aches, and sob Objective: 03/09/19 15:16 Vital Signs 03/09/19 03/09/19 09:56 14:21 Temperature 99.1 F 98.3 F Pulse Rate 72 74 Respiratory 18 18 Rate Blood Pressure 156/99 162/98 Vital signs noted. Denies any headache, chest pain, or N/V at the moment. O2 sat 96% in room air. 03/09/19 15:23 Assessment: 03/09/19 15:17 AOx3, wheezing in b/l lung moore Full ROM withdrawal symptoms persists. 03/09/19 15:18 Plan: Continue detox increase fluids Albuterol/atrovent neb Q6hrs prn
[2019-03-09] MEDS: THIAMINE HCL 100 MG TABLET (FP) PO SCH (22:08)
[2019-03-10] MEDS ORDERED: METHADONE HCL 10 MG TABLET (FOR DETOX USE ONLY) PO ONE (10:00)
[2019-03-10] MEDS: PRENATAL VITAMINS W/ FOLIC ACID TABLET (FP) PO SCH (10:37)
[2019-03-10] MEDS: amLODIPine BESYLATE 5 MG TABLET (FP) PO SCH (10:37)
[2019-03-10] MEDS: NICOTINE 14 MG/24 HOURS TOPICAL PATCH TD SCH (10:37)
[2019-03-10] MEDS: ALBUTEROL SO4 2.5/IPRATROPIUM 0.5 INH SOL 3 ML VIAL.NEB. NEB PRN ×2 (14:42→21:08)
--- NOTE | 2019-03-10 17:49 | PN ---
BHS COWS - Scale Resting Pulse: 1= [place] 81-100 Sweatin= No chills or Flushing Restless Observation: 1= Difficult to Sit Still Pupil Size: 0= Normal to Room Light Bone or Joint Aches: 1= Mild Discomfort Runny Nose/ Eye Tearin= Nasal Congestion GI Upset > 30mins: 1= Stomach Cramp Tremor Observation of Outstretched Hands: 1= Tremor [place], Not Seen Yawning Observation: 0= None Anxiety or Irritability: 1=Feels Anxious/Irritable Goose Flesh Skin: 0=Smooth Skin COWS Score: 7 BHS Progress Note (SOAP) Subjective: Sweating, interrupted sleep Objective: 03/10/19 17:43 Last Vital Signs Temp Pulse Resp BP Pulse Ox 98.8 F 89 18 112/65 03/10/19 17:40 03/10/19 17:40 03/10/19 17:40 03/10/19 17:40 Laboratory Tests 03/09/19 03/09/19 03/09/19 07:45 07:45 08:00 WBC 5.6 RBC 5.07 Hgb 15.4 Hct 46.5 D MCV 91.8 MCH 30.3 MCHC 33.1 RDW 13.6 Plt Count 157 MPV 10.7 Sodium 138 Potassium 4.0 Chloride 101 Carbon Dioxide 30 Anion Gap 7 L BUN 8 Creatinine 0.8 Creat Clearance w eGFR 100.00 Random Glucose 141 H Calcium 9.3 Total Bilirubin 1.6 H AST 99 H ALT 87 H Alkaline Phosphatase 111 Total Protein 7.4 Albumin 3.4 RPR Titer Nonreactive Labs reviewed: glucose 141, total bilirubin 1.6 Assessment: 03/10/19 17:45 Withdrawal symptoms Noted with hyperglycemia and total bilirubin Plan: Continue detox Encouraged PO water intake Hyperglycemia: could be related to withdrawal; repeat fasting glucose, send HbA1c Elevated total bilirubin: most likely r/t substance use, repeat total bilirubin
[2019-03-10] MEDS: cloNIDine HCL 0.1 MG TABLET PO PRN (22:17)
[2019-03-10] MEDS: hydrOXYzine PAMOATE 25 MG CAPSULE (FP) PO PRN (22:17)
[2019-03-10] MEDS: THIAMINE HCL 100 MG TABLET (FP) PO SCH (22:17)
--- NOTE | 2019-03-11 00:48 | PN ---
S Progress Note Note: PER CLIENTS REQUEST DAILY MEDS CHANGED TO 5AM FOR OBSERVANCE OF RAMADAN
[2019-03-11] MEDS: ALBUTEROL SO4 2.5/IPRATROPIUM 0.5 INH SOL 3 ML VIAL.NEB. NEB PRN ×2 (03:18→20:11)
[2019-03-11] MEDS: PRENATAL VITAMINS W/ FOLIC ACID TABLET (FP) PO SCH (04:38)
[2019-03-11] MEDS: amLODIPine BESYLATE 5 MG TABLET (FP) PO SCH (04:38)
[2019-03-11] MEDS: NICOTINE 14 MG/24 HOURS TOPICAL PATCH TD SCH (04:39)
[2019-03-11] MEDS ORDERED: METHADONE HCL 10 MG TABLET (FOR DETOX USE ONLY) PO ONE ×2 (05:00→10:00)
[2019-03-11] MEDS ORDERED: ARTIFICIAL TEARS (POLYVINYL ALCOHOL) OPTH DROPS OU PRN (10:58)
--- NOTE | 2019-03-11 13:50 | PN ---
[facility] COWS - Scale Resting Pulse: 0= TX 80 or Below Sweatin= No chills or Flushing Restless Observation: 0= Sits Still Pupil Size: 0= Normal to Room Light Bone or Joint Aches: 1= Mild Discomfort Runny Nose/ Eye Tearin= Runny Nose/Eyes GI Upset > 30mins: 0= None Tremor Observation of Outstretched Hands: 0= None Yawning Observation: 0= None Anxiety or Irritability: 1=Feels Anxious/Irritable Goose Flesh Skin: 0=Smooth Skin COWS Score: 4 [facility] Progress Note (SOAP) Subjective: dry eyes Objective: 03/11/19 13:48 Vital Signs Temperature 98.1 F 03/11/19 13:37 Pulse Rate 76 03/11/19 13:37 Respiratory Rate 18 03/11/19 13:37 Blood Pressure 121/84 03/11/19 13:37 O2 Sat by Pulse Oximetry (%) Laboratory Tests 03/09/19 03/09/19 03/09/19 07:45 07:45 08:00 WBC 5.6 RBC 5.07 Hgb 15.4 Hct 46.5 D MCV 91.8 MCH 30.3 MCHC 33.1 RDW 13.6 Plt Count 157 MPV 10.7 Sodium 138 Potassium 4.0 Chloride 101 Carbon Dioxide 30 Anion Gap 7 L BUN 8 Creatinine 0.8 Creat Clearance w eGFR 100.00 Random Glucose 141 H Fasting Glucose Hemoglobin A1c % Calcium 9.3 Total Bilirubin 1.6 H AST 99 H ALT 87 H Alkaline Phosphatase 111 Total Protein 7.4 Albumin 3.4 RPR Titer Nonreactive 03/11/19 03/11/19 07:00 07:00 WBC RBC Hgb Hct MCV MCH MCHC RDW Plt Count MPV Sodium Potassium Chloride Carbon Dioxide Anion Gap BUN Creatinine Creat Clearance w eGFR Random Glucose Fasting Glucose 141 H Hemoglobin A1c % 6.4 H Calcium Total Bilirubin 1.0 AST ALT Alkaline Phosphatase Total Protein Albumin RPR Titer aaox3 ambulating no acute distress labs noted; pt states he knows he is boarder line diabetic and will see his pcp after detox. Assessment: 03/11/19 13:49 mild withdrawal sx Plan: continue detox increase fluids artificial tears ordered d/c in am
[2019-03-11] MEDS: THIAMINE HCL 100 MG TABLET (FP) PO SCH (22:41)
[2019-03-11] MEDS: MELATONIN 5 MG TABLETS PO PRN (22:42)
[2019-03-12] MEDS: NICOTINE 14 MG/24 HOURS TOPICAL PATCH TD SCH (04:31)
[2019-03-12] MEDS: PRENATAL VITAMINS W/ FOLIC ACID TABLET (FP) PO SCH (04:31)
[2019-03-12] MEDS: amLODIPine BESYLATE 5 MG TABLET (FP) PO SCH (04:31)
[2019-03-12] MEDS ORDERED: METHADONE HCL 5 MG TABLET (FOR DETOX USE ONLY) PO ONE (06:00)
[2019-03-12 08:24] VITALS: BP 134/84; PULSE 84; TEMP 99.9
--- NOTE | 2019-03-12 09:32 | DS ---
[facility] Detox Discharge Summary Admission Date: 03/08/19 Discharge Date: 03/12/19 - History Present History: Opioid Dependence - Physical Exam Results Vital Signs: Vital Signs Temperature 99.9 F H 03/12/19 08:23 Pulse Rate 84 03/12/19 08:23 Respiratory Rate 18 03/12/19 08:23 Blood Pressure 134/84 03/12/19 08:23 O2 Sat by Pulse Oximetry (%) - Treatment Hospital Course: Detox Protocol Followed, Detoxed Safely, Responded well, Discharged Condition Good, Rehab Referral Accepted - Medication Discharge Medications: Ambulatory Orders Benzonatate [Tessalon Pearls -] 100 mg PO TID 06/02/17 Albuterol Sulfate Inhaler - [Ventolin HFA Inhaler -] 2 inh IH Q4H PRN #1 inh Amlodipine Besylate [Norvasc -] 5 mg PO DAILY #30 tab 07/23/18 - Diagnosis (1) Pre-diabetes Current Visit: Yes Status: Acute (2) Asthma Current Visit: Yes Status: Chronic Qualifiers: Asthma severity: mild Asthma persistence: intermittent Asthma complication type: uncomplicated Qualified Code(s): J45.20 - Mild intermittent asthma, uncomplicated (3) Essential hypertension Current Visit: Yes Status: Chronic (4) Hepatitis C Current Visit: Yes Status: Chronic Qualifiers: Viral hepatitis chronicity: chronic Hepatic coma status: without hepatic coma Qualified Code(s): B18.2 - Chronic viral hepatitis C (5) Nicotine dependence Current Visit: Yes Status: Chronic Qualifiers: Nicotine product type: cigarettes Substance use status: uncomplicated Qualified Code(s): F17.210 - Nicotine dependence, cigarettes, uncomplicated (6) Obesity (BMI 30-39.9) Current Visit: Yes Status: Chronic (7) Opioid dependence with withdrawal Current Visit: Yes Status: Chronic (8) Hyperglycemia Current Visit: No Status: Acute (9) Insomnia Current Visit: No Status: Acute (10) Opioid dependence Current Visit: Yes Status: Acute Qualifiers: Substance use status: uncomplicated Qualified Code(s): F11.20 - Opioid dependence, uncomplicated (11) Sleep difficulties Current Visit: No Status: Acute (12) Wheezing on left of side of chest on inhalation Current Visit: No Status: Acute (13) Arthritis Current Visit: No Status: Chronic (14) Hypertension Current Visit: No Status: Chronic (15) Low back pain Current Visit: No Status: Chronic Qualifiers: Chronicity: unspecified - AMA Did Patient Leave Against Medical Advice: No (pt declined)
== END 2019-03-12 09:05 | disposition home or self-care (01) | DRG 773 ==
LOC: YASAS 23:04 → Y6N 03-08 01:05
PROVIDERS: ADMIT Surgery; ATTEND Surgery
PROC: HZ2ZZZZ Detoxification Services for Substance Abuse Treatment (ICD-10-PCS; principal; 2019-03-08)
DX: F11.23 Opioid dependence with withdrawal (principal); F17.213 Nicotine dependence, cigarettes, with withdrawal; J45.20 Mild intermittent asthma, uncomplicated; B18.2 Chronic viral hepatitis C; I10 Essential (primary) hypertension; R73.03 Prediabetes; G47.00 Insomnia, unspecified; M12.9 Arthropathy, unspecified; M54.5 Low back pain; E66.9 Obesity, unspecified; Z68.36 Body mass index [BMI] 36.0-36.9, adult
CPT/HCPCS: 36415; 80053; 82247; 82947; 83036; 85027; 86593; 94640; J0735